=== PATIENT | female | born 1935 | race Two or more races ===

== ENCOUNTER 2016-11-28 20:59 | Inpatient (IN) | payer MEDICARE, MEDICAID ==
[2016-11-28 21:46] LABS: % BASOPHILS 0.4 % (0.0-2.0); % EOSINOPHILS 3.1 % (0.0-5.0); % LYMPHOCYTES 32.7 % (20.0-50.0); % MONOCYTES 11.1 % (2.0-10.0); % NEUTROPHILS 52.7 % (40.0-80.0); MEAN CELL VOLUME 85.7 fl (81-100); MEAN CORPUSCULAR HEMOGLOBIN 29.2 pg (27.0-31.0); MEAN CORPUSCULAR HGB CONC 34.1 pg (28.0-36.0); MEAN PLATELET VOLUME 9.1 fl; NEUTROPHILE ABSOLUTE 3.4 Th/cmm (1.8-8.0); PLATELET COUNT 215 Th/cmm (150-400); RED CELL DISTRIBUTION WIDTH 13.3 % (11.5-20.0); WHITE BLOOD COUNT 6.4 Th/cmm (4.8-10.8)
[2016-11-28 21:53] LABS: HEMATOCRIT 31.7 % (35.0-45.0); HEMOGLOBIN 10.8 gm/dL (11.7-16.1)
--- NOTE | 2016-11-28 21:54 | ED Physician Chart ---
Chief Complaint/HPI - Patient Information Date Seen:: 11/28/16 Time Seen:: 21:10 Chief Complaint:: SUICIDAL History of Present Illness:: THIS IS A 81 YO FEMALE WHO WAS SENT HERE FROM [facility] FOR EVALUATION AND TREATMENT OF HER PSYCHOSIS. SHE HAS BEEN VERBALIZING ABOUT KILLING HERSELF. SHE ALSO HAS MULTIPLE MEDICAL ISSUES. HYPERTENSION, PARKINSON'S, DEPRESSION, DEMENTIA, DIABETES MELLITUS,GERD AND ELEVATED LIPIDS. SHE IS DISORIENTED. Allergies:: Allergies Allergy/AdvReac Type Severity Reaction Status Date / Time No Known Allergies Allergy Verified 11/28/16 21:13 Vitals:: Vital Signs - 8 hr 11/28/16 21:00 Temp 98.1 F HR 60 RR 18 BP 98/53 O2 Sat % 95 Historian:: EMS, Medical Records Review:: Nurse's Note Reviewed, Transfer documents Reviewed Review of Systems - Review of Systems General/Constitutional: No fever, No chills, No weight loss, No weakness, No diaphoresis, No edema, No loss of appetite Skin: No skin lesions, No rash, No bruising Head: No headache, No light-headedness Eyes: No loss of vision, No pain, No diplopia ENT: No earache, No nasal drainage, No sore throat, No tinnitus Neck: No neck pain, No swelling, No thyromegaly, No stiffness, No mass noted Cardio Vascular: No chest pain, No palpitations, No PND, No orthopnea, No edema Pulmonary: No SOB, No cough, No sputum, No wheezing GI: No nausea, No vomiting, No diarrhea, No pain, No melena, No hematochezia, No constipation, No hematemesis G/U: No dysuria, No frequency, No hematuria Musculoskeletal: No bone or joint pain, No back pain, No muscle pain Endocrine: No polyuria, No polydipsia Psychiatric: No prior psych history, No depression, No anxiety, No suicidal ideation Hematopoietic: No bruising, No lymphadenopathy Allergic/Immuno: No urticaria, No angioedema Neurological: No syncope, No focal symptoms, No weakness, No paresthesia, No headache, No seizure, No dizziness, Confusion (THIS PATIENT IS CONFUSED AND CANNOT GIVE A REVIEW OF SYSTEMS), No confusion, No vertigo Past Medical History - Past Medical History Obtainable: Yes Past Medical History: HTN, DM, CAD, CHF, CVA/TIA, Dyslipidemia, Dementia Family History: None Social History: Non Smoker, No Alcohol, No Drug Use Surgical History: None Psychiatricy History: Depression, Schizophrenia, Dementia Medication: Reviewed Family Medical History - Family Member Mother History Unknown: Yes Ethnicity: Living Status: Physical Exam - Physical Examination General/Constitutional: Awake, Well-developed, well-nourished, Alert (ALERT BUT IS DISORIENTED TO PERSON, PLACE AND CIRCUMSTANCES), No distress, GCS 15, Non- toxic appearing, Ambulatory Head: Atraumatic Eyes: Lids, conjuctiva normal, PERRL, EOMI Skin: Nl inspection, No rash, No skin lesions, No ecchymosis, Well hydrated, No lymphadenopathy ENMT: External ears, nose nl, Nasal exam nl, Lips, teeth, gums nl Neck: Nontender, Full ROM w/o pain, No JVD, No nuchal rigidity, No bruit, No mass, No stridor Respiratory: Nl effort/Exclusion, Clear to Auscultation, No Wheeze/Rhonchi/Rales Cardio Vascular: RRR, No murmur, gallop, rubs, NL S1 S2 Other Cardio Vascular comments:: PACEMAKER NOTED IN CHEST WALL GI: No tenderness/rebounding/guarding, No organomegaly, No hernia, Normal BS's, Nondistended, No mass/bruits, No McBurney tenderness : No CVA tenderness Extremities: No tenderness or effusion, Full ROM, normal strength in all extremities, No edema, Normal digits & nails Neuro/Psych: Alert/oriented, DTR's symmetric, Normal sensory exam, Normal motor strength, Judgement/insight normal, Mood normal, Normal gait, No focal deficits Misc: normal gait, Normal back, No paraspinal tenderness Labs/Radiology/EKG Results - Lab Results Results: Abnormal Lab Results 11/28/16 21:10 WBC 6.4 RBC 3.70 L Hgb 10.8 L D Hct 31.7 L D MCV 85.7 MCH 29.2 MCHC Differential 34.1 RDW 13.3 Plt Count 215 MPV 9.1 Neutrophils % 52.7 Lymphocytes % 32.7 Monocytes % 11.1 H Eosinophils % 3.1 Basophils % 0.4 - EKG Interpretations EKG Time:: 21:53 Rhythm: NORMAL SINUS Ryde: LEFT Rate: 60 ED Septic Shock - . Is Septic Shock (SBP<90, OR Lactate>4 mmol\L) present?: No - <6hrs of presentation: Vital Signs: Vital Signs - 8 hr 11/28/16 21:00 Temp 98.1 F HR 60 RR 18 BP 98/53 O2 Sat % 95 Reassessment (Disposition) - Reassessment Reassessment Condition:: Unchanged - Diagnosis Diagnosis:: SUICIDAL PSYCHOSIS DEMENTIA - Aftercare/Follow up Instructions Aftercare/Follow-Up Instructions:: Refer to Discharge Instructions - Patient Disposition Discharge/Transfer:: Acute Care w/in this hosp Spoke to:: Bienvenido Huffman Admitting Psych Physician:: Sharmaine Waldron Condition at Disposition:: Unchanged
[2016-11-28 22:01] LABS: ALB/GLOB RATIO 1.2 (1.0-1.8); ALKALINE PHOSPHATASE 48 U/L (34-104); ANION GAP 9.7 (7.0-16.0); BILIRUBIN,TOTAL 0.3 mg/dL (0.3-1.0); BUN - UREA NITROGEN 36 mg/dL (7-25); BUN/CREATININE RATIO 25.7; CALCIUM SERUM 9.7 mg/dL (8.6-10.3); CARBON DIOXIDE 25.6 mEq/L (21.0-31.0); CHLORIDE 104 mEq/L (98-107); CHOLESTEROL 126 mg/dL (<200); CREATININE - SERUM 1.4 mg/dL (0.6-1.2); GLUCOSE 136 mg/dL (70-105); POTASSIUM SERUM 4.3 mEq/L (3.5-5.1); SGOT 14 U/L (13-39); SGPT/ALT < 3 U/L (7-52); SODIUM SERUM 135 mEq/L (136-145); TRIGLYCERIDES 130 mg/dL (<150)
[2016-11-28 22:05] LABS: URINE BILIRUBIN NEGATIVE (NEGATIVE); URINE BLOOD NEGATIVE (NEGATIVE); URINE COLOR YELLOW; URINE GLUCOSE (UA) NEGATIVE (NEGATIVE); URINE KETONE NEGATIVE (NEGATIVE)
[2016-11-28 22:06] LABS: URINE PROTEIN NEGATIVE (NEGATIVE); URINE UROBILINOGEN 0.2 E.U./dL (0.2 - 1.0)
[2016-11-28 22:07] LABS: URINE BACTERIA NONE SEEN /hpf (NONE SEEN); URINE EPITHELIAL CELLS NONE SEEN /lpf (FEW); URINE RBC NONE SEEN /hpf (0-5); URINE WBC 0-2 /hpf (0-5)
[2016-11-28 22:10] LABS: INR 1.05 (0.5-1.4); PROTHROMBIN TIME (TEST) 10.4 SECONDS (9.5-11.5)
[2016-11-28] MEDS ORDERED: Maalox 30 mL Cup PO PRN (22:57)
[2016-11-28] MEDS ORDERED: Magnesium Hydroxide (MOM) 30 mL UDC PO PRN (22:57)
[2016-11-28] MEDS ORDERED: Fleet Enema 135 mL RC PRN (23:30)
[2016-11-29 00:01] VITALS: BP 118/79
[2016-11-29] MEDS: Aspirin 81mg Chewable Tab PO SCH (09:48)
[2016-11-29] MEDS: Multivitamin Tab PO SCH (09:48)
--- NOTE | 2016-11-29 15:23 | Diagnostic Imaging Report ---
Portable chest x-ray HISTORY: Shortness of breath The heart is enlarged. Cardiac pacemaker lead wires project over the right atrium and right ventricle. Atherosclerotic calcification is seen in the aorta. Allowing for a poor inspiration, no acute focal pulmonary processes are seen. IMPRESSION: 1. Allowing for a poor inspiration, no acute focal pulmonary processes 2. Cardiomegaly with atherosclerotic vascular changes
[2016-11-29] MEDS: NITROGLYCERIN OINT 2% 1 INCH PACKET TP SCH (18:47)
--- NOTE | 2016-11-29 21:28 | History & Physical ---
INTERNAL MEDICINE CONSULTATION HISTORY OF PRESENT ILLNESS: The patient is an 81-year-old female with past medical history significant for COPD, congestive heart failure, diabetes mellitus, hypertension, coronary artery disease, ____, gastritis, arthritis, history of cardiac arrhythmia, and anemia. SOCIAL HISTORY: Prior history of smoking. No history of drug or alcohol abuse. FAMILY HISTORY: Not available. OBSTETRIC HISTORY: P 2+0. Menses ____ menopausal. REVIEW OF SYSTEMS: The patient is complaining of headache. The patient is suicidal, has been transferred chronic back pain, occasional nausea, no vomiting, no melena or hematochezia. PHYSICAL EXAMINATION: GENERAL: Elderly female in no obvious respiratory distress. VITAL SIGNS: Include blood pressure of 140/80, heart 80, and respiratory rate of 18. SKIN: Shows no cellulitis. HEENT: Normal conjunctiva. NECK: Supple. LUNGS: Occasional rhonchi, occasional crepitation. No bronchial breathing. HEART: present. ABDOMEN: Soft, bowel sounds . EXTREMITIES: Show arthritis. NEUROLOGIC: The patient is confused. LABS: Have been reviewed. CURRENT DIAGNOSES: 1. Chronic obstructive pulmonary disease. 2. Congestive heart failure. 3. Diabetes mellitus. 4. Hypertension. 5. Coronary artery disease. 6. ____. 7. Gastritis. 8. Arthritis. 9. Cardiac arrhythmia. 10. Psychosis. TREATMENT PLAN: As per JAN. PROGNOSIS: Fair to guarded. JOB# [id number]
--- NOTE | 2016-11-29 23:33 | Psychosocial Evaluation ---
IDENTIFYING DATA: The patient is an 81-year-old woman admitted here on a voluntary basis in view of her acute depression. CHIEF COMPLAINT: "I want to end my life. I cannot go on like this." HISTORY OF PRESENT ILLNESS: This is the first psychiatric hospitalization to the [facility] for this patient who is reported to have been diagnosed with the depression for a long period of time and has been followed up by Dr. Huffman and Dr. Pruitt in [facility] and patient lately has been feeling extremely depressed and has been voicing suicidal ideations and plans. The patient has been maintained with the Cymbalta and Zyprexa even then the patient has not been able to contract for safety and hence patient has been referred over here for further stabilization. PAST PSYCHIATRIC HISTORY: Please refer to the above. MEDICAL HISTORY: Physical examination is requested and done by Dr. Huffman and is significant for hypertension, Parkinson's disease and diabetes mellitus. SUBSTANCE ABUSE HISTORY: None. PHYSICAL OR SEXUAL ABUSE HISTORY: None. LEGAL PROBLEMS: None at this time. STRENGTH AND ASSETS: The patient is motivated. MENTAL STATUS EXAMINATION: The patient is an 81-year-old woman, moderately obese, superficially cooperative. Eye contact is fair. Mood ____ depressed. Affect is constricted. Insight and judgment at this time are noted to be impaired. Impulse control seems to be poor. Coping skills are also noted to be poor. The patient has been having difficult time to cope with the stress. The patient is tearful and crying and stating that she cannot deal with her life and wants to end it. The patient has paranoid delusions, but denies any command hallucinations. The patient's short and long-term memory are noted to very poor. The patient is isolative and withdrawn. The patient is not able to recall the three objects that are mentioned to her after 5 minutes, but patient knows her age, but is having difficult time to recall her date of . DIAGNOSTIC IMPRESSION: AXIS I: Major depressive disorder, recurrent with psychotic symptoms. AXIS II: None. AXIS III: As per Dr. Huffman. IMMEDIATE TREATMENT PLAN: The patient is going to be observed on inpatient unit, provided with supportive psychotherapy. The patient is going to be continued on the Cymbalta, which is going to be gradually increased and the Zyprexa is going to be adjusted. ESTIMATED LENGTH OF STAY: 3-5 days. DISCHARGE CRITERIA: When patient is no longer a threat to self or others and be able to cope up with the stress. [facility]# [id number]
[2016-11-30] MEDS: Aspirin 81mg Chewable Tab PO SCH (10:01)
[2016-11-30] MEDS: NITROGLYCERIN OINT 2% 1 INCH PACKET TP SCH (10:02)
[2016-11-30] MEDS: Multivitamin Tab PO SCH (10:02)
[2016-11-30] MEDS: Artificial Tear Ophth Oint 3.5 Gm Tube EACH EYE SCH (17:36)
--- NOTE | 2016-12-01 06:43 | Progress Notes ---
TIME PATIENT SEEN: 5:30 p.m. SUBJECTIVE: Staff was spoken to. The patient is interviewed. Mood is noted to be depressed. Affect is constricted. The patient is still responding to internal stimuli. Insight and judgment are noted to be very much impaired. The patient has been having drooling, ____now on one hand, the patient also has been stating that the voices to keep on telling her to hurt herself. No side effects to the medications are noted at this time. ASSESSMENT: The patient is still psychotic. PLAN: To continue the patient with the supportive therapy. I encouraged the patient to verbalize the concerns rather than to act out. JOB# [id number]
[2016-12-01] MEDS: Aspirin 81mg Chewable Tab PO SCH (08:44)
[2016-12-01] MEDS: Artificial Tear Ophth Oint 3.5 Gm Tube EACH EYE SCH ×2 (08:47→16:44)
[2016-12-01] MEDS: Multivitamin Tab PO SCH (08:47)
[2016-12-01] MEDS: NITROGLYCERIN OINT 2% 1 INCH PACKET TP SCH (08:48)
[2016-12-01] MEDS ORDERED: Magnesium Hydroxide (MOM) 30 mL UDC PO PRN (09:52)
--- NOTE | 2016-12-02 04:42 | Progress Notes ---
TIME PATIENT SEEN: 08:45 a.m. SUBJECTIVE: Staff was spoken to. The patient is interviewed. Mood is noted to be irritable. Affect is constricted. Coping skills are noted to be still poor. Sleep and appetite are also noted to be poor. The patient has been having difficult time to cope with the stress. No side effects to the medications are noted at this time. The patient is still having difficult time to cope with the stress, has paranoid delusions and is insisting on hurting herself. ASSESSMENT: The patient is still psychotic. PLAN: To continue the patient with Zyprexa. I encouraged the patient to verbalize the concerns rather than to act out. JOB# [id number]
[2016-12-02] MEDS: NITROGLYCERIN OINT 2% 1 INCH PACKET TP SCH (09:48)
[2016-12-02] MEDS: Artificial Tear Ophth Oint 3.5 Gm Tube EACH EYE SCH ×2 (09:48→17:51)
[2016-12-02] MEDS: Aspirin 81mg Chewable Tab PO SCH (09:50)
[2016-12-02] MEDS: Multivitamin Tab PO SCH (09:50)
--- NOTE | 2016-12-02 23:06 | Progress Notes ---
PSYCHIATRIC PROGRESS NOTE TIME PATIENT SEEN: 7:45 a.m. SUBJECTIVE: Staff was spoken to. The patient is interviewed. Mood is noted to be anxious. The patient's coping skills are noted to be poor. Sleep and appetite are also noted to be poor. The patient has been having difficult time to cope with the stress. The patient is still responding to internal stimuli and is stating that she is scared that they are going to be trying to hurt her. The patient has no insight into her illness. ASSESSMENT: The patient is still psychotic and depressed. PLAN: To continue the patient with the current medications. I encouraged the patient to verbalize the concerns rather than to act out. JOB# [id number]
[2016-12-03] MEDS: Multivitamin Tab PO SCH (09:18)
[2016-12-03] MEDS: Aspirin 81mg Chewable Tab PO SCH (09:19)
[2016-12-03] MEDS: Artificial Tear Ophth Oint 3.5 Gm Tube EACH EYE SCH ×2 (09:32→17:29)
[2016-12-03] MEDS: NITROGLYCERIN OINT 2% 1 INCH PACKET TP SCH (09:32)
--- NOTE | 2016-12-04 01:16 | Progress Notes ---
PSYCHIATRIC PROGRESS NOTE TIME PATIENT SEEN: 8:30 a.m. SUBJECTIVE: Staff was spoken to. The patient is interviewed. Continues to be irritable and angry. Affect is constricted. The patient is isolative and withdrawn. Coping skills are noted to be poor. The patient is stating that she is sleeping okay. Appetite is , but voices are still a problem. No side effects to the medications are noted. ASSESSMENT: The patient is still psychotic and is responding to internal stimuli. PLAN: To continue the patient with supportive therapy and follow up. JOB# [id number]
[2016-12-04] MEDS: Aspirin 81mg Chewable Tab PO SCH (08:27)
[2016-12-04] MEDS: Artificial Tear Ophth Oint 3.5 Gm Tube EACH EYE SCH ×2 (08:28→17:13)
[2016-12-04] MEDS: Multivitamin Tab PO SCH (08:29)
[2016-12-04] MEDS: NITROGLYCERIN OINT 2% 1 INCH PACKET TP SCH (08:30)
--- NOTE | 2016-12-05 01:33 | Progress Notes ---
PSYCHIATRIC PROGRESS NOTE TIME PATIENT SEEN: 09:00 a.m. SUBJECTIVE: Staff was spoken to. The patient is interviewed. Mood is noted to be anxious. The patient is still responding to internal stimuli. The patient has been on this Zyprexa and it is decided to change the Zyprexa to Seroquel last night. Seroquel 25 mg has been given to help her to sleep and resolve the psychosis, but the patient still has been having tremor in the upper extremities. Plan is to closely monitor the patient and discontinue the Zyprexa and see if the Seroquel can be of some help. JOB# [id number]
[2016-12-05] MEDS: Artificial Tear Ophth Oint 3.5 Gm Tube EACH EYE SCH ×2 (08:50→16:40)
[2016-12-05] MEDS: Aspirin 81mg Chewable Tab PO SCH (08:52)
[2016-12-05] MEDS: Multivitamin Tab PO SCH (08:53)
[2016-12-05] MEDS: NITROGLYCERIN OINT 2% 1 INCH PACKET TP SCH (08:53)
--- NOTE | 2016-12-06 00:04 | Progress Notes ---
PSYCHIATRIC PROGRESS NOTE TIME PATIENT SEEN: 8:45 a.m. SUBJECTIVE: Staff was spoken to. The patient is interviewed. Mood is noted to be irritable. Affect is constricted. The patient has been still responding to internal stimuli. The patient is currently on Seroquel and is able to tolerate the medication. The patient continues to have tremor in the upper extremities. No side effects to the medications are noted at this time. ASSESSMENT: The patient is still psychotic. PLAN: To continue the patient with the current medications and follow. JOB# [id number]
[2016-12-06] MEDS: Multivitamin Tab PO SCH (09:05)
[2016-12-06] MEDS: Aspirin 81mg Chewable Tab PO SCH (09:05)
[2016-12-06] MEDS: NITROGLYCERIN OINT 2% 1 INCH PACKET TP SCH (09:11)
[2016-12-06] MEDS: Artificial Tear Ophth Oint 3.5 Gm Tube EACH EYE SCH ×2 (09:20→16:35)
--- NOTE | 2016-12-06 23:55 | Progress Notes ---
PSYCHIATRIC PROGRESS NOTE TIME PATIENT SEEN: 6:30 a.m. SUBJECTIVE: Staff was spoken to. The patient is interviewed. Mood is noted to be anxious. Affect is constricted. The patient's insight and judgment are noted to be still impaired. Impulse control is noted to be poor. Coping skills are noted to be very poor. No side effects to the medications are noted. The patient has been having difficult time to cope with the stress. ASSESSMENT: The patient is still psychotic and depressed. PLAN: To continue the patient with supportive therapy. I encouraged the patient to verbalize the concerns rather than to act out. JOB# [id number]
[2016-12-07] MEDS: Multivitamin Tab PO SCH (09:52)
[2016-12-07] MEDS: Aspirin 81mg Chewable Tab PO SCH (09:52)
[2016-12-07] MEDS: Artificial Tear Ophth Oint 3.5 Gm Tube EACH EYE SCH ×2 (09:53→16:28)
[2016-12-07] MEDS: NITROGLYCERIN OINT 2% 1 INCH PACKET TP SCH (09:54)
--- NOTE | 2016-12-08 03:08 | Progress Notes ---
PSYCHIATRIC PROGRESS NOTE TIME PATIENT SEEN: 5:15 p.m. SUBJECTIVE: Staff was spoken to. The patient is interviewed. Mood is noted to be irritable. Affect is constricted. Coping skills are noted to be poor. The patient has paranoid delusions, but denies any command hallucinations. No side effects to the medications are noted. The patient has been having difficult time with the stress. The patient has tremor in the upper extremities because of the Parkinson's disease. ASSESSMENT: The patient is still psychotic. PLAN: To continue the patient with the supportive therapy. I encouraged the patient to verbalize the concerns rather than to act out. JOB# [id number]
[2016-12-08] MEDS: Multivitamin Tab PO SCH (09:57)
[2016-12-08] MEDS: Aspirin 81mg Chewable Tab PO SCH (09:57)
[2016-12-08] MEDS: Artificial Tear Ophth Oint 3.5 Gm Tube EACH EYE SCH ×2 (09:57→17:34)
[2016-12-08] MEDS: NITROGLYCERIN OINT 2% 1 INCH PACKET TP SCH (09:58)
--- NOTE | 2016-12-08 20:59 | Progress Notes ---
PSYCHIATRIC PROGRESS NOTE TIME PATIENT SEEN: 9:45 a.m. SUBJECTIVE: Staff was spoken to. The patient is interviewed. Mood is noted to be depressed. Affect is constricted. The patient is still responding to internal stimuli. The patient has been having drooling all over. The patient's coping skills are noted to be poor. No side effects to medications are noted at this time. ASSESSMENT: The patient is still psychotic. PLAN: To continue the patient with Seroquel. I encouraged the patient to verbalize the concerns. The case sealer is going to be spoken to with regards to the patient's condition and primary care physician is going to be contacted with regards to reevaluation of her Parkinson's medications. JOB# [id number]
[2016-12-09] MEDS: Aspirin 81mg Chewable Tab PO SCH (08:51)
[2016-12-09] MEDS: Multivitamin Tab PO SCH (08:52)
[2016-12-09] MEDS: Artificial Tear Ophth Oint 3.5 Gm Tube EACH EYE SCH ×2 (12:12→17:55)
[2016-12-09] MEDS: NITROGLYCERIN OINT 2% 1 INCH PACKET TP SCH (12:13)
[2016-12-10] MEDS: Multivitamin Tab PO SCH (08:17)
[2016-12-10] MEDS: Aspirin 81mg Chewable Tab PO SCH (08:21)
[2016-12-10] MEDS: NITROGLYCERIN OINT 2% 1 INCH PACKET TP SCH (08:25)
[2016-12-10] MEDS: Artificial Tear Ophth Oint 3.5 Gm Tube EACH EYE SCH ×2 (08:30→16:32)
--- NOTE | 2016-12-10 12:03 | Progress Notes ---
PSYCHIATRIC PROGRESS NOTE TIME PATIENT SEEN: 7:15 a.m. SUBJECTIVE: Staff was spoken to. The patient is interviewed. Mood is noted to be depressed. Affect is constricted. The patient has been having drooling and the patient got agitated and anxious yesterday and has to be given a dose of Ativan that made her to be too drowsy. The patient's primary care physician, Dr. Huffman has been requested for the patient to be reevaluated with regards to her Parkinson's medications. ASSESSMENT: The patient continues to be paranoid and visual hallucinations are there. PLAN: To continue the patient with Seroquel and follow up. JOB# [id number]
[2016-12-11] MEDS: NITROGLYCERIN OINT 2% 1 INCH PACKET TP SCH (08:53)
[2016-12-11] MEDS: Artificial Tear Ophth Oint 3.5 Gm Tube EACH EYE SCH ×2 (08:53→16:34)
[2016-12-11] MEDS: Multivitamin Tab PO SCH (08:54)
[2016-12-11] MEDS: Aspirin 81mg Chewable Tab PO SCH (08:54)
--- NOTE | 2016-12-11 20:09 | Progress Notes ---
PSYCHIATRIC PROGRESS NOTE TIME PATIENT SEEN: ____ SUBJECTIVE: Staff was spoken to. The patient is interviewed. Mood is noted to be anxious. Affect is constricted. The patient's insight and judgment are noted to be improving. Impulse control seems to be fair. Coping skills are also noted to be fair. The patient has paranoid delusions, but denies any command hallucinations. The patient has been having problems with the depression and the patient has tremor in the upper extremities, which is going down. No side effects to the medications are noted at this time. ASSESSMENT: The patient's psychosis is resolving, but the patient is still depressed. PLAN: To continue the patient's current medications and follow up. [facility]# [id number]
[2016-12-12] MEDS: NITROGLYCERIN OINT 2% 1 INCH PACKET TP SCH (08:56)
[2016-12-12] MEDS: Artificial Tear Ophth Oint 3.5 Gm Tube EACH EYE SCH ×2 (08:56→18:32)
[2016-12-12] MEDS: Multivitamin Tab PO SCH (08:56)
[2016-12-12] MEDS: Aspirin 81mg Chewable Tab PO SCH (08:56)
--- NOTE | 2016-12-12 20:00 | Progress Notes ---
TIME PATIENT SEEN: 09:30 a.m. SUBJECTIVE: Staff was spoken to. The patient is interviewed. Mood is noted to be depressed. Affect is constricted. The patient has been still isolative and withdrawn. The drooling has been coming down, but the patient continues to be paranoid. The patient is stating that she is still hearing the voices, but she is also stating that she is getting too drowsy with the medication. The patient has been changed from Zyprexa to Seroquel and has been able to tolerate the medication. The patient has been denying immediate hallucinations at this time, but the patient continues to be paranoid. ASSESSMENT: The patient is still having paranoia. PLAN: To continue the patient with supportive therapy. I encouraged the patient to verbalize the concerns rather than to act out. JOB# [id number]
[2016-12-13] MEDS: Aspirin 81mg Chewable Tab PO SCH (09:17)
[2016-12-13] MEDS: NITROGLYCERIN OINT 2% 1 INCH PACKET TP SCH (09:17)
[2016-12-13] MEDS: Multivitamin Tab PO SCH (09:17)
[2016-12-13] MEDS: Artificial Tear Ophth Oint 3.5 Gm Tube EACH EYE SCH ×2 (09:17→18:01)
--- NOTE | 2016-12-13 23:02 | Progress Notes ---
PSYCHIATRIC PROGRESS NOTE TIME PATIENT SEEN: 07:15 a.m. SUBJECTIVE: Staff was spoken to. The patient is interviewed. Mood is noted to be anxious. Affect is appropriate. Not suicidal or homicidal. Insight and judgment are noted to be improving. Impulse control seems to be fair. No side effects to the medications are noted. The patient has not been able to participate in the groups. The patient has been having difficult time to cope with the stress. The patient is stating that the voices are going down, but she is still worried about getting back to the facility. No side effects to the medications are noted at this time. ASSESSMENT: The patient is still paranoid, but not impulsive. PLAN: To continue the patient with supportive therapy and followup. JOB# [id number]
--- NOTE | 2016-12-17 21:00 | Discharge Summary ---
IDENTIFYING DATA: The patient is an 81-year-old woman, resident of [facility]. Information was obtained by directly interviewing the patient as well as reviewing the admission papers. JUSTIFICATION OF HOSPITALIZATION: The patient is admitted here on a voluntary basis in view of her psychosis and depression. CHIEF COMPLAINT: "I want to end my life. I cannot go on like this." DIAGNOSIS AT THE TIME OF ADMISSION: Major depressive disorder, recurrent with psychotic symptoms. SECONDARY DIAGNOSIS: None. MEDICAL DIAGNOSES: As per Dr. Huffman. HISTORY OF PRESENT ILLNESS: Please refer to the 11/29/2016 dictation done by me. Physical examination was done by Dr. Huffman and is noted to be significant for COPD, hypertension, diabetes mellitus and Parkinson's disease. HOSPITAL COURSE AND RESPONSE TO TREATMENT: The patient has been observed on Inpatient Unit, provided with supportive psychotherapy. The patient has been closely monitored. The patient was noted to be too drowsy and drugged up and hence, the Zyprexa has been gradually discontinued. The patient has been placed on low dose of the Seroquel at bedtime. The patient has been encouraged to participate in the groups and verbalize the concerns rather than to act out. The patient's carbidopa, levodopa has been changed to 25/100 one twice a day and the patient has been encouraged to participate in the groups. The patient's psychosis started to resolve and the patient has been noted to be doing fairly well and hence, the patient was finally discharged to be followed up on an outpatient basis. The patient's Zyprexa and Cymbalta have been discontinued while she was here. MENTAL STATUS EXAMINATION AT THE TIME OF DISCHARGE: The patient's mood is noted to be anxious. Affect is appropriate, not suicidal or homicidal. Insight and judgment are noted to be improving. Impulse control is noted to be fair. No side effects to the medications are noted. The patient is motivated to seek treatment on an outpatient basis. DIAGNOSIS AT THE TIME OF DISCHARGE: AXIS I: Major depressive disorder, recurrent with psychotic symptoms. SECONDARY DIAGNOSIS: None. MEDICAL DIAGNOSES: Chronic obstructive pulmonary disease, diabetes mellitus, hypertension, coronary artery disease and Parkinson's disease. AFTERCARE PLAN: The patient is discharged to [facility] to be followed up by Dr. Pruitt on an outpatient basis. PROGNOSIS AT THE TIME OF THE DISCHARGE: Noted to be guarded. JOB# [id number]
== END 2016-12-13 18:10 | DRG 885 ==
LOC: ER 20:59 → GERO 22:05
PROVIDERS: ADMIT Psychiatry & Neurology Psychiatry; ATTEND Psychiatry & Neurology Psychiatry
DX: F33.3 Major depressive disorder, recurrent, severe with psychotic symptoms (principal); F03.90 Unspecified dementia, unspecified severity, without behavioral disturbance, psychotic disturbance, mood disturbance, and anxiety; G20 Parkinson's disease; I11.0 Hypertensive heart disease with heart failure; E11.9 Type 2 diabetes mellitus without complications; J44.9 Chronic obstructive pulmonary disease, unspecified; I50.9 Heart failure, unspecified; D64.9 Anemia, unspecified; F29 Unspecified psychosis not due to a substance or known physiological condition; K21.9 Gastro-esophageal reflux disease without esophagitis; I25.10 Atherosclerotic heart disease of native coronary artery without angina pectoris; E78.5 Hyperlipidemia, unspecified; M19.90 Unspecified osteoarthritis, unspecified site; K29.70 Gastritis, unspecified, without bleeding; Z86.73 Personal history of transient ischemic attack (TIA), and cerebral infarction without residual deficits; Z87.891 Personal history of nicotine dependence
CPT/HCPCS: 36415-UA; 71010-TC; 80053-TC; 80061-TC; 81001-TC; 82948-90; 84443-TC; 84484-TC; 85025-TC; 85610-TC; 86592-TC; 93005; J2060; J7051; X3401; Z7610

== ENCOUNTER 2017-12-21 18:42 | Inpatient (IN) | payer MEDICARE, MEDICAID ==
--- NOTE | 2017-12-21 19:05 | ED Physician Chart ---
ED Chief Complaint/HPI - Patient Information Date Seen:: 12/21/17 Time Seen:: 19:00 Chief Complaint:: poor fluid intake and refusing meds History of Present Illness:: Poor oral intake and refusing meds for last 2 days. Also has been exhibiting aggressive behavior. Allergies:: Allergies Allergy/AdvReac Type Severity Reaction Status Date / Time No Known Allergies Allergy Verified 11/28/16 21:13 Historian:: EMS Review:: Transfer documents Reviewed ED Review of Systems - Review of Systems General/Constitutional: No fever, No chills Skin: No skin lesions Head: No headache Eyes: No loss of vision ENT: No earache Neck: No neck pain Cardio Vascular: No chest pain Pulmonary: No SOB GI: No nausea, No vomiting, No diarrhea G/U: No dysuria Musculoskeletal: No bone or joint pain Endocrine: No polyuria Psychiatric: Prior psych history Hematopoietic: No bruising Allergic/Immuno: No urticaria Neurological: No syncope ED Past Medical History - Past Medical History Past Medical History: DM, CAD, Other (stage IV renal disease; dementia Parkinson 's disease; depression) Family History: Other (not available) Social History: Care Facility Surgical History: other (pacemaker) Psychiatricy History: Dementia Medication: Reviewed Family Medical History - Family Member Mother History Unknown: Yes Ethnicity: Unknown Living Status: Unknown Hx Family Cancer: (unknown) Hx Family Coronary Artery Disease: (unknown) Hx Family Congestive Heart Failure: (unknown) Hx Family Hypertension: (unknown) Hx Family Stroke: (unknown) Hx Family Diabetes: (unknown) Hx Family Seizures: (unknown) Hx Family Dementia: (unknown) Hx Family AIDS: (unknown) Hx Family COPD: (unknown) Hx Family Hepatitis: (unknown) Hx Family Psychiatric Problems: (unknown) Hx Family Tuberculosis: (unknown) ED Physical Exam - Physical Examination General/Constitutional: Well-developed, well-nourished, Alert, No distress Head: Atraumatic Eyes: Lids, conjuctiva normal, PERRL Skin: Nl inspection, No rash, No skin lesions, No ecchymosis ENMT: External ears, nose nl Neck: No nuchal rigidity Respiratory: Nl effort/Exclusion, Clear to Auscultation Cardio Vascular: RRR, No murmur, gallop, rubs GI: No tenderness/rebounding/guarding Extremities: Normal digits & nails Neuro/Psych: No focal deficits Misc: Normal back ED Labs/Radiology/EKG Results - Lab Results Results: Laboratory Results - last 24 hr 12/21/17 12/21/17 12/21/17 19:15 19:15 19:15 WBC 9.1 D RBC 4.19 Hgb 11.9 L Hct 36.2 L D MCV 86.4 MCH 28.4 MCHC Differential 32.9 RDW 12.5 Plt Count 321 D MPV 9.2 Neutrophils % 75.8 Lymphocytes % 12.9 L Monocytes % 8.9 Eosinophils % 2.2 Basophils % 0.2 Sodium 140 Potassium 3.4 L Chloride 108 H Carbon Dioxide 26.1 Anion Gap 9.3 BUN 17 Creatinine 1.9 H Est GFR ( Amer) TNP Est GFR (Non-Af Amer) TNP BUN/Creatinine Ratio 8.9 Glucose 100 Calcium 9.1 Total Bilirubin 0.6 AST 12 L ALT 7 Alkaline Phosphatase 47 Total Protein 6.6 Albumin 3.5 L Globulin 3.1 Albumin/Globulin Ratio 1.1 Triglycerides 71 Cholesterol 119 LDL Cholesterol Direct 68 L HDL Cholesterol 40 TSH 1.65 - EKG Interpretations Rate & Rhythm: normal sinus rhythm with a rate of 77 [place]: normal Comments:: T wave changes in baseline artifact ED Septic Shock - . Is Septic Shock (SBP<90, OR Lactate>4 mmol\L) present?: No ED Reassessment (Disposition) - Reassessment Reassessment Condition:: Unchanged - Diagnosis Diagnosis:: Aggressive behavior - Patient Disposition Admitted to:: [facility] Admitting Medical Physician:: Tony Mary Admitting Psych Physician:: Amparo Hernandez Condition at Disposition:: Stable, Unchanged
[2017-12-21 19:34] LABS: % BASOPHILS 0.2 % (0.0-2.0); % EOSINOPHILS 2.2 % (0.0-5.0); % LYMPHOCYTES 12.9 % (20.0-50.0); % MONOCYTES 8.9 % (2.0-10.0); % NEUTROPHILS 75.8 % (40.0-80.0); EOSINOPHILE ABSOLUTE 0.2 Th/cmm (0.1-0.4); HEMOGLOBIN 11.9 gm/dL (12-16); LYMPHOCYTE ABSOLUTE 1.2 Th/cmm (1.5-3.0); MEAN CELL VOLUME 86.4 fl (81-100); MEAN CORPUSCULAR HEMOGLOBIN 28.4 pg (27.0-31.0); MEAN CORPUSCULAR HGB CONC 32.9 pg (28.0-36.0); MEAN PLATELET VOLUME 9.2 fl; MONOCYTE ABSOLUTE 0.8 Th/cmm (0.3-1.0); NEUTROPHILE ABSOLUTE 6.9 Th/cmm (1.8-8.0); RED BLOOD COUNT 4.19 Mil/cmm (3.80-5.20); RED CELL DISTRIBUTION WIDTH 12.5 % (11.5-20.0)
[2017-12-21 19:36] LABS: HEMATOCRIT 36.2 % (41.0-60); PLATELET COUNT 321 Th/cmm (150-400); WHITE BLOOD COUNT 9.1 Th/cmm (4.8-10.8)
[2017-12-21 19:39] LABS: ALB/GLOB RATIO 1.1 (1.0-1.8); ALBUMIN 3.5 gm/dL (3.7-5.3); ALKALINE PHOSPHATASE 47 U/L (34-104); ANION GAP 9.3 (7.0-16.0); BILIRUBIN,TOTAL 0.6 mg/dL (0.3-1.0); BUN - UREA NITROGEN 17 mg/dL (7-25); CALCIUM SERUM 9.1 mg/dL (8.6-10.3); CARBON DIOXIDE 26.1 mEq/L (21.0-31.0); CHLORIDE 108 mEq/L (98-107); CHOLESTEROL 119 mg/dL (<200); CREATININE - SERUM 1.9 mg/dL (0.6-1.2); GLUCOSE 100 mg/dL (70-105); HDL -HIGH DENSITY LIPOPROTEIN 40 mg/dL (23-92); POTASSIUM SERUM 3.4 mEq/L (3.5-5.1); SGOT 12 U/L (13-39); SGPT/ALT 7 U/L (7-52); SODIUM SERUM 140 mEq/L (136-145); TOTAL PROTEIN,SERUM 6.6 gm/dL (6.0-8.3); TRIGLYCERIDES 71 mg/dL (<150)
[2017-12-22 00:17] VITALS: BP 125/67
[2017-12-22] MEDS ORDERED: Magnesium Hydroxide (MOM) 30 mL UDC PO PRN (00:27)
[2017-12-22] MEDS ORDERED: Fleet Enema 135 mL RC PRN (00:27)
[2017-12-22] MEDS: Aspirin 81mg Chewable Tab PO SCH (09:41)
[2017-12-22] MEDS: Potassium Chloride 10 mEq ER Tab PO SCH (09:41)
[2017-12-22] MEDS: Multivitamin Tab PO SCH (09:44)
[2017-12-22 17:19] LABS: A1C % 5.5 % (4.0-6.0)
--- NOTE | 2017-12-22 19:53 | History and Physical ---
History of Present Illness - HPI Chief Complaint: refusing oral intake and aggressiveness HPI: This is a 82 year old [facility] resident who has been refusing oral intake and aggressive behavior towards nursing staff. Vital Signs: Last Vital Signs Temp 97.8 F 12/22/17 16:00 Pulse 97 12/22/17 16:00 Resp 16 12/22/17 16:00 BP 124/64 12/22/17 16:00 Pulse Ox 97 12/22/17 16:00 Past Medical History Other History: DM, CAD, Other (stage IV renal disease; dementia Parkinson's disease; depression ) Family Medical History - Family Member Mother History Unknown: Yes Ethnicity: Unknown Living Status: Unknown Hx Family Cancer: (unknown) Hx Family Coronary Artery Disease: (unknown) Hx Family Congestive Heart Failure: (unknown) Hx Family Hypertension: (unknown) Hx Family Stroke: (unknown) Hx Family Diabetes: (unknown) Hx Family Seizures: (unknown) Hx Family Dementia: (unknown) Hx Family AIDS: (unknown) Hx Family HIV: No Hx Family COPD: (unknown) Hx Family Hepatitis: (unknown) Hx Family Psychiatric Problems: (unknown) Hx Family Tuberculosis: (unknown) Social History Smoke: No Alcohol: None Drugs: None Lives: Care Home - Medications Home Medications: Home Medication Medication Instructions Recorded Type Folic Acid [Folate*] 1 mg PO DAILY #0 tab 10/21/15 Rx Magnesium Hydroxide [Milk of 30 ml PO DAILY PRN #0 udc 10/21/15 Rx Magnesia] metFORMIN [Glucophage] 500 mg PO BID #0 tab 10/21/15 Rx Simvastatin [Zocor*] 20 mg PO QPM 11/28/16 History Aspirin [Aspirin Chewable] 81 mg PO DAILY #0 ctb 12/13/16 Rx Fleet Enema 135 ml RC Q48HR PRN #0 btl 12/13/16 Rx Mirtazapine [Remeron] 7.5 mg PO HS #0 tab 12/13/16 Rx Multivitamin [Theragran] 1 tab PO DAILY #0 tab 12/13/16 Rx Acetaminophen [Tylenol] 650 mg PO Q4HR PRN 12/21/17 History Bisacodyl [Dulcolax 10 Mg Supp] 10 mg RC DAILY PRN 12/21/17 History Carbidopa/Levodopa 25/100 mg 1 tab PO 2100 12/21/17 History [Sinemet 25mg-100 mg] Carbidopa/Levodopa 25/100 mg 1 tab PO QID 12/21/17 History [Sinemet 25mg-100 mg] Docusate Sodium [Colace] 100 mg PO DAILY 12/21/17 History Furosemide [Lasix] 20 mg PO DAILY 12/21/17 History Pantoprazole [Protonix] 40 mg PO DAILY 12/21/17 History Potassium Chloride 1 tab PO DAILY 12/21/17 History amLODIPine Besylate [Norvasc] 5 mg PO DAILY 12/21/17 History - Allergies Allergies/Adverse Reactions: Allergies Allergy/AdvReac Type Severity Reaction Status Date / Time No Known Allergies Allergy Verified 12/21/17 20:24 Review of Systems - Review of Systems Constitutional: Report: No Significant Eyes: Report: No Significant ENT: Report: No Significant Respiratory: Report: No Significant Cardiovascular: Report: No Significant Neurological: Report: No Significant Physical Exam - Physical Exam HEENT: Report: Ears Nose Throat within normal limits Neck: Report: Within normal limits Cardiovascular Systems: Report: +s1/s2 noted, Regular, Rate and Rhythm Respiratory: Report: Breath Sounds are within normal limits Extremities: Report: Non-tender to palpation. Skin: Report: Color of skin is within normal limits Neuro/Psych: Report: Mood affect is within normal limits - Assessment Assessment: DM STAGE IV RENAL DISEASE DEMENTIA DEPRESSION [facility] - Plan Plan: monitor glucose fall precautions monitor i+o continue current orders
--- NOTE | 2017-12-23 09:16 | Psychosocial Evaluation ---
DATE OF SERVICE: 12/21/2017 PSYCHIATRIC INITIAL EVALUATION AND MENTAL STATUS EXAM PATIENT'S AGE: 82. SEX: Female. PHYSICIAN: Amparo Hernandez MD, MPH CHIEF COMPLAINT: Agitation and aggressive behavior. HISTORY OF PRESENT ILLNESS: The patient is an 82-year-old female who is living in [facility]. The patient has been aggressive and agitated towards resident and staff. She was swinging at other residents. The patient also has been in angry and in irritable mood and she was not able to follow any of the staff directions. The patient also has been suspicious and has been paranoid and easily agitated. She also has not been able to calm down with the staff instructions. The patient was out of control and the patient was transferred to the hospital to monitor her condition and adjust her medications. PAST PSYCHIATRIC HISTORY: The patient has dementia. PAST MEDICAL HISTORY: The patient has history of Parkinson disease. SOCIAL HISTORY: The patient lives in [facility]. The patient has no known alcohol or drug use or smoking cigarettes. ALLERGIES: No known allergies. MENTAL STATUS EXAMINATION: The patient appears her stated age. Anxious. Irritable mood. Unable to carry on coherent conversation. The patient also has a history of septic shock. FAMILY HISTORY: Noncontributory. ALLERGIES: No known allergies. MENTAL STATUS EXAM: The patient appears her stated age. Anxious. Flat affect. Irritable mood. Thought processes are circumstantial and tangential with flight of ideas. The patient suspicious and paranoid. The patient denied hallucinations or delusions but she is paranoid. The patient denies suicidal or homicidal ideations. The patient is alert but seems to be confused and disoriented to time, place, person and situation. Impaired immediate and recent memory, but intact remote memory and she remembered her date. Poor insight. Poor judgment. ASSESSMENT: PRIMARY DIAGNOSIS: Unspecified psychosis. SECONDARY DIAGNOSIS: Dementia, moderate to severe. MEDICAL DIAGNOSIS: Parkinson disease. TREATMENT PLAN: Continue to monitor her behavior closely. We will add Seroquel in a dose of 12.5 mg 3 times a day. Also, continue to work on behavioral modification. Also, continue Remeron 7.5 mg at bedtime. ESTIMATED LENGTH OF STAY: 5-7 days. THE PATIENT'S STRENGTHS AND WEAKNESSES: The patient seems to be in relatively fair health. Weaknesses: Her ineffective coping and poor impulse control. AFTER DISCHARGE PLAN: Outpatient treatment and followup. We will continue in [facility] and the patient most probably will return to [facility]. JOB# [id number]
[2017-12-23] MEDS: Potassium Chloride 10 mEq ER Tab PO SCH (10:00)
[2017-12-23] MEDS: Multivitamin Tab PO SCH (10:00)
[2017-12-23] MEDS: Aspirin 81mg Chewable Tab PO SCH (10:00)
--- NOTE | 2017-12-23 17:53 | Progress Notes ---
DATE: 12/23/2017 SUBJECTIVE: Chart reviewed and the patient interviewed. Also discussed the patient's condition with the staff and reviewed records and labs. The patient continued to be in angry and in irritable mood. The patient also is still restless and she is still demanding. The patient also is uncooperative with the staff and she is still resisting care. She also is still suspicious and paranoid and in angry mood. Otherwise, the patient continued to be demanding and aggressive with staff. ASSESSMENT: The patient is still psychotic and in irritable mood. TREATMENT PLAN: We will continue to monitor her behavior and her medications closely. Also, continue to work on her poor impulse control and her agitation and continue to follow up. [facility]# [id number]
--- NOTE | 2017-12-23 19:26 | Progress Notes ---
DATE: 12/23/2017 SUBJECTIVE: The patient was seen in her room, lying in the bed. The patient appears to be weak and according to nurses, the patient does want to eat and is refusing oral medications. Otherwise, the patient appears to be in no acute distress. OBJECTIVE: VITAL SIGNS: Temperature 97.8, heart rate 97, respiration of 16, blood pressure 124/64, 97% on room air. HEENT: Head is atraumatic and normocephalic. Eyes: Bilateral conjunctivae are clear. Bilateral pupils are equally round and reactive. NECK: Supple. No JVD. CARDIOVASCULAR: S1 and S2, without murmur. PULMONARY: Clear to auscultation. GASTROINTESTINAL: Soft and nontender without guarding. Positive bowel sounds. MUSCULOSKELETAL: No clubbing. No cyanosis noted. ASSESSMENT: 1. Dementia. 2. Diabetes mellitus. 3. Coronary artery disease. 4. Chronic kidney disease. 5. Osteoarthritis. PLAN: We will keep the patient inpatient and will follow up with a psychiatrist to monitor the patient's condition and behavior. Treatment plans were discussed with the patient's nurse. Treatment plans were discussed with Dr. Mary. JOB# [id number]
[2017-12-24] MEDS: Pantoprazole 40 mg EC Tab PO SCH (06:40)
--- NOTE | 2017-12-24 09:09 | General Progress Note ---
Subjective - Review of Systems Events since last encounter: irritable mood awake alert Objective - Results Result Diagrams: 12/21/17 19:15 12/21/17 19:15 Recent Labs: Laboratory Last Values WBC 9.1 Th/cmm (4.8-10.8) D 12/21/17 19:15 RBC 4.19 Mil/cmm (3.80-5.20) 12/21/17 19:15 Hgb 11.9 gm/dL (12-16) L 12/21/17 19:15 Hct 36.2 % (41.0-60) L D 12/21/17 19:15 MCV 86.4 fl (81-100) 12/21/17 19:15 MCH 28.4 pg (27.0-31.0) 12/21/17 19:15 MCHC Differential 32.9 pg (28.0-36.0) 12/21/17 19:15 RDW 12.5 % (11.5-20.0) 12/21/17 19:15 Plt Count 321 Th/cmm (150-400) D 12/21/17 19:15 MPV 9.2 fl 12/21/17 19:15 Neutrophils % 75.8 % (40.0-80.0) 12/21/17 19:15 Lymphocytes % 12.9 % (20.0-50.0) L 12/21/17 19:15 Monocytes % 8.9 % (2.0-10.0) 12/21/17 19:15 Eosinophils % 2.2 % (0.0-5.0) 12/21/17 19:15 Basophils % 0.2 % (0.0-2.0) 12/21/17 19:15 Sodium 140 mEq/L (136-145) 12/21/17 19:15 Potassium 3.4 mEq/L (3.5-5.1) L 12/21/17 19:15 Chloride 108 mEq/L (98-107) H 12/21/17 19:15 Carbon Dioxide 26.1 mEq/L (21.0-31.0) 12/21/17 19:15 Anion Gap 9.3 (7.0-16.0) 12/21/17 19:15 BUN 17 mg/dL (7-25) 12/21/17 19:15 Creatinine 1.9 mg/dL (0.6-1.2) H 12/21/17 19:15 Est GFR ( Amer) TNP 12/21/17 19:15 Est GFR (Non-Af Amer) TNP 12/21/17 19:15 BUN/Creatinine Ratio 8.9 12/21/17 19:15 Glucose 100 mg/dL (70-105) 12/21/17 19:15 Hemoglobin A1c % 5.5 % (4.0-6.0) 12/21/17 19:15 Calcium 9.1 mg/dL (8.6-10.3) 12/21/17 19:15 Total Bilirubin 0.6 mg/dL (0.3-1.0) 12/21/17 19:15 AST 12 U/L (13-39) L 12/21/17 19:15 ALT 7 U/L (7-52) 12/21/17 19:15 Alkaline Phosphatase 47 U/L (34-104) 12/21/17 19:15 Total Protein 6.6 gm/dL (6.0-8.3) 12/21/17 19:15 Albumin 3.5 gm/dL (3.7-5.3) L 12/21/17 19:15 Globulin 3.1 gm/dL 12/21/17 19:15 Albumin/Globulin Ratio 1.1 (1.0-1.8) 12/21/17 19:15 Triglycerides 71 mg/dL (<150) 12/21/17 19:15 Cholesterol 119 mg/dL (<200) 12/21/17 19:15 LDL Cholesterol Direct 68 mg/dL (75-193) L 12/21/17 19:15 HDL Cholesterol 40 mg/dL (23-92) 12/21/17 19:15 TSH 1.65 uIU/ml (0.34-5.60) 12/21/17 19:15 RPR NONREACTIVE (NONREACTIVE) 12/21/17 19:15 - Physical Exam Vitals and I&O: Vital Signs Temp 97.8 F 12/23/17 18:43 Pulse 77 12/23/17 18:43 Resp 20 12/23/17 18:43 BP 121/70 12/23/17 18:43 Pulse Ox 98 12/23/17 18:43 Active Medications: Current Medications Acetaminophen (Tylenol) 650 mg PO Q4HR PRN PRN Reason: Pain or Fever >101 Stop: 02/20/18 00:26 Amlodipine Besylate (Norvasc) 5 mg PO DAILY [facility] Stop: 02/20/18 08:59 Last Admin: 12/23/17 10:10 Dose: 5 mg Aspirin (Aspirin Chewable) 81 mg PO DAILY KRISTIE Stop: 02/20/18 08:59 Last Admin: 12/23/17 10:00 Dose: 81 mg Bisacodyl (Dulcolax 10 Mg Supp) 10 mg RC DAILY PRN PRN Reason: Constipation Stop: 02/20/18 00:26 Carbidopa/Levodopa (Sinemet 25mg-100 Mg) 1 tab PO 2100 [facility] Stop: 02/20/18 20:59 Last Admin: 12/23/17 22:39 Dose: Not Given Carbidopa/Levodopa (Sinemet 25mg-100 Mg) 1 tab PO QID KRISTIE Stop: 02/20/18 08:59 Last Admin: 12/23/17 22:39 Dose: Not Given Docusate Sodium (Colace) 100 mg PO DAILY [facility] Stop: 02/20/18 08:59 Last Admin: 12/23/17 10:00 Dose: 100 mg Folic Acid (Folate) 1 mg PO DAILY [facility] Stop: 02/20/18 08:59 Last Admin: 12/23/17 10:00 Dose: 1 mg Furosemide (Lasix) 20 mg PO DAILY KRISTIE Stop: 02/20/18 08:59 Last Admin: 12/23/17 10:00 Dose: 20 mg Lorazepam (Ativan) 0.5 mg PO Q6HR PRN; Protocol PRN Reason: Agitation Stop: 02/20/18 04:54 Magnesium Hydroxide (Milk Of Magnesia) 30 ml PO DAILY PRN PRN Reason: Constipation Stop: 02/20/18 00:26 Mirtazapine (Remeron) 7.5 mg PO HS KRISTIE PRN Reason: Protocol Stop: 02/20/18 20:59 Multivitamins/Vitamin C (Theragran) 1 tab PO DAILY KRISTIE Stop: 02/20/18 08:59 Last Admin: 12/23/17 10:00 Dose: 1 tab Pantoprazole Sodium (Protonix) 40 mg PO QDAC KRISTIE Stop: 02/20/18 08:59 Last Admin: 12/24/17 06:40 Dose: Not Given Potassium Chloride (Klor-Con) 10 meq PO DAILY KRISTIE Stop: 02/20/18 08:59 Last Admin: 12/23/17 10:00 Dose: 10 meq Quetiapine Fumarate (Seroquel) 12.5 mg PO TID KRISTIE PRN Reason: Protocol Stop: 02/20/18 05:20 Simvastatin (Zocor) 20 mg PO QPM KRISTIE PRN Reason: Protocol Stop: 02/20/18 16:59 Last Admin: 12/23/17 17:26 Dose: 20 mg Sodium Phosphate (Fleet Enema) 135 ml RC Q48HR PRN PRN Reason: Constipation Stop: 02/20/18 00:26 Zolpidem Tartrate (Ambien) 5 mg PO HS PRN PRN Reason: Insomnia Stop: 02/20/18 04:56 - Procedures Procedures: Procedures Procedure Code Date GROUP PSYCHOTHERAPY 47633 10/01/15 GROUP PSYCHOTHERAPY [id number] 10/01/15 GROUP PSYCHOTHERAPY 57365 09/02/03 [facility] PSYCHOTHERAP NEC 94.39 11/27/05 INSERT PACE. DUAL FRANCIS IN CHEST SUBCU/FASCIA, OPEN [id number] 10/09/15 INSERTION OF PACEMAKER LEAD INTO RIGHT ATRIUM, OPEN APPROACH [id number] 10/09/15 INSRT HEART PM ATRIAL & VENT 21889 10/09/15 OTHER GROUP THERAPY 94.44 05/06/08 RECREATIONAL THERAPY 93.81 01/23/08 Assessment/Plan - Problem List Patient Problems: All Active Problems Dementia (Acute) F03.90 HTN (hypertension) (Acute) I10 Parkinson disease (Acute) G20 Psychosis (Acute) F29 Urinary tract infection (Acute)
[2017-12-24] MEDS: Aspirin 81mg Chewable Tab PO SCH (09:44)
[2017-12-24] MEDS: Multivitamin Tab PO SCH (09:45)
[2017-12-24] MEDS: Potassium Chloride 10 mEq ER Tab PO SCH (09:46)
[2017-12-25] MEDS: Pantoprazole 40 mg EC Tab PO SCH (07:00)
[2017-12-25] MEDS: Potassium Chloride 10 mEq ER Tab PO SCH (09:07)
[2017-12-25] MEDS: Aspirin 81mg Chewable Tab PO SCH (09:07)
[2017-12-25] MEDS: Multivitamin Tab PO SCH (09:08)
--- NOTE | 2017-12-25 09:39 | General Progress Note ---
Subjective - Review of Systems Events since last encounter: irritable in no distress Objective - Results Result Diagrams: 12/21/17 19:15 12/21/17 19:15 Recent Labs: Laboratory Last Values WBC 9.1 Th/cmm (4.8-10.8) D 12/21/17 19:15 RBC 4.19 Mil/cmm (3.80-5.20) 12/21/17 19:15 Hgb 11.9 gm/dL (12-16) L 12/21/17 19:15 Hct 36.2 % (41.0-60) L D 12/21/17 19:15 MCV 86.4 fl (81-100) 12/21/17 19:15 MCH 28.4 pg (27.0-31.0) 12/21/17 19:15 MCHC Differential 32.9 pg (28.0-36.0) 12/21/17 19:15 RDW 12.5 % (11.5-20.0) 12/21/17 19:15 Plt Count 321 Th/cmm (150-400) D 12/21/17 19:15 MPV 9.2 fl 12/21/17 19:15 Neutrophils % 75.8 % (40.0-80.0) 12/21/17 19:15 Lymphocytes % 12.9 % (20.0-50.0) L 12/21/17 19:15 Monocytes % 8.9 % (2.0-10.0) 12/21/17 19:15 Eosinophils % 2.2 % (0.0-5.0) 12/21/17 19:15 Basophils % 0.2 % (0.0-2.0) 12/21/17 19:15 Sodium 140 mEq/L (136-145) 12/21/17 19:15 Potassium 3.4 mEq/L (3.5-5.1) L 12/21/17 19:15 Chloride 108 mEq/L (98-107) H 12/21/17 19:15 Carbon Dioxide 26.1 mEq/L (21.0-31.0) 12/21/17 19:15 Anion Gap 9.3 (7.0-16.0) 12/21/17 19:15 BUN 17 mg/dL (7-25) 12/21/17 19:15 Creatinine 1.9 mg/dL (0.6-1.2) H 12/21/17 19:15 Est GFR ( Amer) TNP 12/21/17 19:15 Est GFR (Non-Af Amer) TNP 12/21/17 19:15 BUN/Creatinine Ratio 8.9 12/21/17 19:15 Glucose 100 mg/dL (70-105) 12/21/17 19:15 Hemoglobin A1c % 5.5 % (4.0-6.0) 12/21/17 19:15 Calcium 9.1 mg/dL (8.6-10.3) 12/21/17 19:15 Total Bilirubin 0.6 mg/dL (0.3-1.0) 12/21/17 19:15 AST 12 U/L (13-39) L 12/21/17 19:15 ALT 7 U/L (7-52) 12/21/17 19:15 Alkaline Phosphatase 47 U/L (34-104) 12/21/17 19:15 Total Protein 6.6 gm/dL (6.0-8.3) 12/21/17 19:15 Albumin 3.5 gm/dL (3.7-5.3) L 12/21/17 19:15 Globulin 3.1 gm/dL 12/21/17 19:15 Albumin/Globulin Ratio 1.1 (1.0-1.8) 12/21/17 19:15 Triglycerides 71 mg/dL (<150) 12/21/17 19:15 Cholesterol 119 mg/dL (<200) 12/21/17 19:15 LDL Cholesterol Direct 68 mg/dL (75-193) L 12/21/17 19:15 HDL Cholesterol 40 mg/dL (23-92) 12/21/17 19:15 TSH 1.65 uIU/ml (0.34-5.60) 12/21/17 19:15 RPR NONREACTIVE (NONREACTIVE) 12/21/17 19:15 - Physical Exam Vitals and I&O: Vital Signs Temp 98.2 F 12/25/17 06:27 Pulse 68 12/25/17 09:07 Resp 18 12/25/17 06:27 BP 109/65 12/25/17 09:07 Pulse Ox 95 12/25/17 06:27 Active Medications: Current Medications Acetaminophen (Tylenol) 650 mg PO Q4HR PRN PRN Reason: Pain or Fever >101 Stop: 02/20/18 00:26 Amlodipine Besylate (Norvasc) 5 mg PO DAILY KRISTIE Stop: 02/20/18 08:59 Last Admin: 12/25/17 09:07 Dose: 5 mg Aspirin (Aspirin Chewable) 81 mg PO DAILY KRISTIE Stop: 02/20/18 08:59 Last Admin: 12/25/17 09:07 Dose: 81 mg Bisacodyl (Dulcolax 10 Mg Supp) 10 mg RC DAILY PRN PRN Reason: Constipation Stop: 02/20/18 00:26 Carbidopa/Levodopa (Sinemet 25mg-100 Mg) 1 tab PO 2100 [facility] Stop: 02/20/18 20:59 Last Admin: 12/24/17 21:55 Dose: 1 tab Carbidopa/Levodopa (Sinemet 25mg-100 Mg) 1 tab PO QID KRISTIE Stop: 02/20/18 08:59 Last Admin: 12/24/17 22:04 Dose: 1 tab Docusate Sodium (Colace) 100 mg PO DAILY [facility] Stop: 02/20/18 08:59 Last Admin: 12/25/17 09:07 Dose: 100 mg Folic Acid (Folate) 1 mg PO DAILY KRISTIE Stop: 02/20/18 08:59 Last Admin: 12/25/17 09:05 Dose: 1 mg Furosemide (Lasix) 20 mg PO DAILY KRISTIE Stop: 02/20/18 08:59 Last Admin: 12/25/17 09:06 Dose: 20 mg Lorazepam (Ativan) 0.5 mg PO Q6HR PRN; Protocol PRN Reason: Agitation Stop: 02/20/18 04:54 Magnesium Hydroxide (Milk Of Magnesia) 30 ml PO DAILY PRN PRN Reason: Constipation Stop: 02/20/18 00:26 Mirtazapine (Remeron) 7.5 mg PO HS KRISTIE PRN Reason: Protocol Stop: 02/20/18 20:59 Last Admin: 12/24/17 21:55 Dose: 7.5 mg Multivitamins/Vitamin C (Theragran) 1 tab PO DAILY KRISTIE Stop: 02/20/18 08:59 Last Admin: 12/25/17 09:08 Dose: 1 tab Pantoprazole Sodium (Protonix) 40 mg PO QDAC KRISTIE Stop: 02/20/18 08:59 Last Admin: 12/25/17 07:00 Dose: 40 mg Potassium Chloride (Klor-Con) 10 meq PO DAILY [facility] Stop: 02/20/18 08:59 Last Admin: 12/25/17 09:07 Dose: 10 meq Quetiapine Fumarate (Seroquel) 12.5 mg PO TID KRISTIE PRN Reason: Protocol Stop: 02/20/18 05:20 Last Admin: 12/25/17 09:09 Dose: 12.5 mg Simvastatin (Zocor) 20 mg PO QPM KRISTIE PRN Reason: Protocol Stop: 02/20/18 16:59 Last Admin: 12/24/17 17:10 Dose: 20 mg Sodium Phosphate (Fleet Enema) 135 ml RC Q48HR PRN PRN Reason: Constipation Stop: 02/20/18 00:26 Zolpidem Tartrate (Ambien) 5 mg PO HS PRN PRN Reason: Insomnia Stop: 02/20/18 04:56 - Procedures Procedures: Procedures Procedure Code Date GROUP PSYCHOTHERAPY 81088 10/01/15 GROUP PSYCHOTHERAPY [id number] 10/01/15 GROUP PSYCHOTHERAPY 19172 09/02/03 INDIVID PSYCHOTHERAP NEC 94.39 11/27/05 INSERT PACE. DUAL FRANCIS IN CHEST SUBCU/FASCIA, OPEN [id number] 10/09/15 INSERTION OF PACEMAKER LEAD INTO RIGHT ATRIUM, OPEN APPROACH [id number] 10/09/15 INSRT HEART PM ATRIAL & VENT [id number] 10/09/15 OTHER GROUP THERAPY 94.44 05/06/08 RECREATIONAL THERAPY 93.81 01/23/08 Assessment/Plan - Problem List Patient Problems: All Active Problems Dementia (Acute) F03.90 HTN (hypertension) (Acute) I10 Parkinson disease (Acute) G20 Psychosis (Acute) F29 Urinary tract infection (Acute)
[2017-12-26] MEDS: Pantoprazole 40 mg EC Tab PO SCH (07:12)
[2017-12-26] MEDS: Aspirin 81mg Chewable Tab PO SCH (09:40)
[2017-12-26] MEDS: Potassium Chloride 10 mEq ER Tab PO SCH (09:40)
[2017-12-26] MEDS: Multivitamin Tab PO SCH (09:41)
--- NOTE | 2017-12-26 12:29 | Internal Medicine Prog Note ---
Internal Medicine Subjective - Subjective Service Date: 12/26/17 Patient seen and examined:: with staff Patient is:: awake Per staff patient has:: tolerating meds Internal Medicine Objective - Results Result Diagrams: 12/21/17 19:15 12/21/17 19:15 Recent Labs: Laboratory Last Values WBC 9.1 Th/cmm (4.8-10.8) D 12/21/17 19:15 RBC 4.19 Mil/cmm (3.80-5.20) 12/21/17 19:15 Hgb 11.9 gm/dL (12-16) L 12/21/17 19:15 Hct 36.2 % (41.0-60) L D 12/21/17 19:15 MCV 86.4 fl (81-100) 12/21/17 19:15 MCH 28.4 pg (27.0-31.0) 12/21/17 19:15 MCHC Differential 32.9 pg (28.0-36.0) 12/21/17 19:15 RDW 12.5 % (11.5-20.0) 12/21/17 19:15 Plt Count 321 Th/cmm (150-400) D 12/21/17 19:15 MPV 9.2 fl 12/21/17 19:15 Neutrophils % 75.8 % (40.0-80.0) 12/21/17 19:15 Lymphocytes % 12.9 % (20.0-50.0) L 12/21/17 19:15 Monocytes % 8.9 % (2.0-10.0) 12/21/17 19:15 Eosinophils % 2.2 % (0.0-5.0) 12/21/17 19:15 Basophils % 0.2 % (0.0-2.0) 12/21/17 19:15 Sodium 140 mEq/L (136-145) 12/21/17 19:15 Potassium 3.4 mEq/L (3.5-5.1) L 12/21/17 19:15 Chloride 108 mEq/L (98-107) H 12/21/17 19:15 Carbon Dioxide 26.1 mEq/L (21.0-31.0) 12/21/17 19:15 Anion Gap 9.3 (7.0-16.0) 12/21/17 19:15 BUN 17 mg/dL (7-25) 12/21/17 19:15 Creatinine 1.9 mg/dL (0.6-1.2) H 12/21/17 19:15 Est GFR ( Amer) TNP 12/21/17 19:15 Est GFR (Non-Af Amer) TNP 12/21/17 19:15 BUN/Creatinine Ratio 8.9 12/21/17 19:15 Glucose 100 mg/dL (70-105) 12/21/17 19:15 Hemoglobin A1c % 5.5 % (4.0-6.0) 12/21/17 19:15 Calcium 9.1 mg/dL (8.6-10.3) 12/21/17 19:15 Total Bilirubin 0.6 mg/dL (0.3-1.0) 12/21/17 19:15 AST 12 U/L (13-39) L 12/21/17 19:15 ALT 7 U/L (7-52) 12/21/17 19:15 Alkaline Phosphatase 47 U/L (34-104) 12/21/17 19:15 Total Protein 6.6 gm/dL (6.0-8.3) 12/21/17 19:15 Albumin 3.5 gm/dL (3.7-5.3) L 12/21/17 19:15 Globulin 3.1 gm/dL 12/21/17 19:15 Albumin/Globulin Ratio 1.1 (1.0-1.8) 12/21/17 19:15 Triglycerides 71 mg/dL (<150) 12/21/17 19:15 Cholesterol 119 mg/dL (<200) 12/21/17 19:15 LDL Cholesterol Direct 68 mg/dL (75-193) L 12/21/17 19:15 HDL Cholesterol 40 mg/dL (23-92) 12/21/17 19:15 TSH 1.65 uIU/ml (0.34-5.60) 12/21/17 19:15 RPR NONREACTIVE (NONREACTIVE) 12/21/17 19:15 - Physical Exam Vitals and I&O: Vital Signs Temp 98.3 F 12/26/17 06:33 Pulse 69 12/26/17 06:33 Resp 20 12/26/17 06:33 BP 102/59 12/26/17 09:41 Pulse Ox 97 12/26/17 06:33 Intake & Output 12/25/17 12/26/17 12/26/17 18:59 06:59 18:59 Intake Total 500 Balance 500 Intake: Oral 500 Other: # Voids 2 Active Medications: Current Medications Acetaminophen (Tylenol) 650 mg PO Q4HR PRN PRN Reason: Pain or Fever >101 Stop: 02/20/18 00:26 Amlodipine Besylate (Norvasc) 5 mg PO DAILY [facility] Stop: 02/20/18 08:59 Last Admin: 12/25/17 09:07 Dose: 5 mg Aspirin (Aspirin Chewable) 81 mg PO DAILY [facility] Stop: 02/20/18 08:59 Last Admin: 12/26/17 09:40 Dose: 81 mg Bisacodyl (Dulcolax 10 Mg Supp) 10 mg RC DAILY PRN PRN Reason: Constipation Stop: 02/20/18 00:26 Carbidopa/Levodopa (Sinemet 25mg-100 Mg) 1 tab PO 2100 [facility] Stop: 02/20/18 20:59 Last Admin: 12/25/17 21:00 Dose: Not Given Carbidopa/Levodopa (Sinemet 25mg-100 Mg) 1 tab PO QID [facility] Stop: 02/20/18 08:59 Last Admin: 12/26/17 09:41 Dose: 1 tab Docusate Sodium (Colace) 100 mg PO DAILY [facility] Stop: 02/20/18 08:59 Last Admin: 12/26/17 09:40 Dose: 100 mg Folic Acid (Folate) 1 mg PO DAILY [facility] Stop: 02/20/18 08:59 Last Admin: 12/26/17 09:41 Dose: 1 mg Furosemide (Lasix) 20 mg PO DAILY [facility] Stop: 02/20/18 08:59 Last Admin: 12/26/17 09:41 Dose: 20 mg Lorazepam (Ativan) 0.5 mg PO Q6HR PRN; Protocol PRN Reason: Agitation Stop: 02/20/18 04:54 Magnesium Hydroxide (Milk Of Magnesia) 30 ml PO DAILY PRN PRN Reason: Constipation Stop: 02/20/18 00:26 Mirtazapine (Remeron) 7.5 mg PO HS [facility] PRN Reason: Protocol Stop: 02/20/18 20:59 Last Admin: 12/25/17 21:00 Dose: Not Given Multivitamins/Vitamin C (Theragran) 1 tab PO DAILY [facility] Stop: 02/20/18 08:59 Last Admin: 12/26/17 09:41 Dose: 1 tab Pantoprazole Sodium (Protonix) 40 mg PO QDAC [facility] Stop: 02/20/18 08:59 Last Admin: 12/26/17 07:12 Dose: Not Given Potassium Chloride (Klor-Con) 10 meq PO DAILY [facility] Stop: 02/20/18 08:59 Last Admin: 12/26/17 09:40 Dose: 10 meq Quetiapine Fumarate (Seroquel) 12.5 mg PO TID [facility] PRN Reason: Protocol Stop: 02/20/18 05:20 Last Admin: 12/25/17 21:00 Dose: Not Given Simvastatin (Zocor) 20 mg PO QPM [facility] PRN Reason: Protocol Stop: 02/20/18 16:59 Last Admin: 12/25/17 17:26 Dose: 20 mg Sodium Phosphate (Fleet Enema) 135 ml RC Q48HR PRN PRN Reason: Constipation Stop: 02/20/18 00:26 Zolpidem Tartrate (Ambien) 5 mg PO HS PRN PRN Reason: Insomnia Stop: 02/20/18 04:56 General: alert HEENT: NC/AT, PERRLA Lungs: CTAB Cardiovascular: RRR, Normal S1, Normal S2 Abdomen: soft, non-tender, non-distended, positive bowel sound Neurological: alert - Procedures Procedures: Procedures Procedure Code Date GROUP PSYCHOTHERAPY 67083 10/01/15 GROUP PSYCHOTHERAPY GZHZZZZ 10/01/15 GROUP PSYCHOTHERAPY 63633 09/02/03 [facility] PSYCHOTHERAP NEC 94.39 11/27/05 INSERT PACE. DUAL FRANCIS IN CHEST SUBCU/FASCIA, OPEN [id number] 10/09/15 INSERTION OF PACEMAKER LEAD INTO RIGHT ATRIUM, OPEN APPROACH [id number] 10/09/15 INSRT HEART PM ATRIAL & VENT 27041 10/09/15 OTHER GROUP THERAPY 94.44 08 RECREATIONAL THERAPY 93.81 01/23/08 Internal Medicine Assmt/Plan - Assessment Assessment: DM STAGE IV RENAL DISEASE DEMENTIA DEPRESSION [facility] - Plan Plan: monitor glucose fall precautions monitor i+o continue current orders
--- NOTE | 2017-12-26 13:16 | Progress Notes ---
DATE: 12/24/2017 SUBJECTIVE: Chart reviewed and the patient interviewed. Also discussed the patient's condition with the staff and reviewed records and labs. The patient is still confused. She also is anxious and withdrawn. She also still has periods of irritability and resisting care, but she is more cooperative than before in regard to her care. She also did take her medications yesterday. She is still forgetful and needs lots of redirections. ASSESSMENT: The patient is still confused and considered to be gravely disabled. TREATMENT PLAN: Continue to monitor her condition and her medications closely. Also, continue adjusting psychotropic medications and followup. [facility]# [id number]
[2017-12-27] MEDS: Aspirin 81mg Chewable Tab PO SCH (08:58)
[2017-12-27] MEDS: Multivitamin Tab PO SCH (09:00)
[2017-12-27] MEDS: Potassium Chloride 10 mEq ER Tab PO SCH (09:00)
[2017-12-27] MEDS: Pantoprazole 40 mg EC Tab PO SCH (09:00)
--- NOTE | 2017-12-27 09:43 | General Progress Note ---
Subjective - Review of Systems Events since last encounter: patient awake alert in no distresss Objective - Results Result Diagrams: 12/21/17 19:15 12/21/17 19:15 Recent Labs: Laboratory Last Values WBC 9.1 Th/cmm (4.8-10.8) D 12/21/17 19:15 RBC 4.19 Mil/cmm (3.80-5.20) 12/21/17 19:15 Hgb 11.9 gm/dL (12-16) L 12/21/17 19:15 Hct 36.2 % (41.0-60) L D 12/21/17 19:15 MCV 86.4 fl (81-100) 12/21/17 19:15 MCH 28.4 pg (27.0-31.0) 12/21/17 19:15 MCHC Differential 32.9 pg (28.0-36.0) 12/21/17 19:15 RDW 12.5 % (11.5-20.0) 12/21/17 19:15 Plt Count 321 Th/cmm (150-400) D 12/21/17 19:15 MPV 9.2 fl 12/21/17 19:15 Neutrophils % 75.8 % (40.0-80.0) 12/21/17 19:15 Lymphocytes % 12.9 % (20.0-50.0) L 12/21/17 19:15 Monocytes % 8.9 % (2.0-10.0) 12/21/17 19:15 Eosinophils % 2.2 % (0.0-5.0) 12/21/17 19:15 Basophils % 0.2 % (0.0-2.0) 12/21/17 19:15 Sodium 140 mEq/L (136-145) 12/21/17 19:15 Potassium 3.4 mEq/L (3.5-5.1) L 12/21/17 19:15 Chloride 108 mEq/L (98-107) H 12/21/17 19:15 Carbon Dioxide 26.1 mEq/L (21.0-31.0) 12/21/17 19:15 Anion Gap 9.3 (7.0-16.0) 12/21/17 19:15 BUN 17 mg/dL (7-25) 12/21/17 19:15 Creatinine 1.9 mg/dL (0.6-1.2) H 12/21/17 19:15 Est GFR ( Amer) TNP 12/21/17 19:15 Est GFR (Non-Af Amer) TNP 12/21/17 19:15 BUN/Creatinine Ratio 8.9 12/21/17 19:15 Glucose 100 mg/dL (70-105) 12/21/17 19:15 Hemoglobin A1c % 5.5 % (4.0-6.0) 12/21/17 19:15 Calcium 9.1 mg/dL (8.6-10.3) 12/21/17 19:15 Total Bilirubin 0.6 mg/dL (0.3-1.0) 12/21/17 19:15 AST 12 U/L (13-39) L 12/21/17 19:15 ALT 7 U/L (7-52) 12/21/17 19:15 Alkaline Phosphatase 47 U/L (34-104) 12/21/17 19:15 Total Protein 6.6 gm/dL (6.0-8.3) 12/21/17 19:15 Albumin 3.5 gm/dL (3.7-5.3) L 12/21/17 19:15 Globulin 3.1 gm/dL 12/21/17 19:15 Albumin/Globulin Ratio 1.1 (1.0-1.8) 12/21/17 19:15 Triglycerides 71 mg/dL (<150) 12/21/17 19:15 Cholesterol 119 mg/dL (<200) 12/21/17 19:15 LDL Cholesterol Direct 68 mg/dL (75-193) L 12/21/17 19:15 HDL Cholesterol 40 mg/dL (23-92) 12/21/17 19:15 TSH 1.65 uIU/ml (0.34-5.60) 12/21/17 19:15 RPR NONREACTIVE (NONREACTIVE) 12/21/17 19:15 - Physical Exam Vitals and I&O: Vital Signs Temp 97.8 F 12/26/17 22:00 Pulse 78 12/27/17 08:59 Resp 20 12/26/17 22:00 BP 114/70 12/27/17 08:59 Pulse Ox 98 12/26/17 22:00 Intake & Output 12/26/17 12/27/17 12/27/17 18:59 06:59 18:59 Intake Total 240 Balance 240 Intake: Oral 240 Other: # Voids 1 Active Medications: Current Medications Acetaminophen (Tylenol) 650 mg PO Q4HR PRN PRN Reason: Pain or Fever >101 Stop: 02/20/18 00:26 Amlodipine Besylate (Norvasc) 5 mg PO DAILY [facility] Stop: 02/20/18 08:59 Last Admin: 12/27/17 08:59 Dose: 5 mg Aspirin (Aspirin Chewable) 81 mg PO DAILY [facility] Stop: 02/20/18 08:59 Last Admin: 12/27/17 08:58 Dose: 81 mg Bisacodyl (Dulcolax 10 Mg Supp) 10 mg RC DAILY PRN PRN Reason: Constipation Stop: 02/20/18 00:26 Carbidopa/Levodopa (Sinemet 25mg-100 Mg) 1 tab PO 2100 [facility] Stop: 02/20/18 20:59 Last Admin: 12/26/17 21:58 Dose: Not Given Carbidopa/Levodopa (Sinemet 25mg-100 Mg) 1 tab PO QID [facility] Stop: 02/20/18 08:59 Last Admin: 12/27/17 08:58 Dose: 1 tab Docusate Sodium (Colace) 100 mg PO DAILY [facility] Stop: 02/20/18 08:59 Last Admin: 12/27/17 08:58 Dose: 100 mg Folic Acid (Folate) 1 mg PO DAILY [facility] Stop: 02/20/18 08:59 Last Admin: 12/27/17 08:57 Dose: 1 mg Furosemide (Lasix) 20 mg PO DAILY [facility] Stop: 02/20/18 08:59 Last Admin: 12/27/17 08:57 Dose: 20 mg Lorazepam (Ativan) 0.5 mg PO Q6HR PRN; Protocol PRN Reason: Agitation Stop: 02/20/18 04:54 Magnesium Hydroxide (Milk Of Magnesia) 30 ml PO DAILY PRN PRN Reason: Constipation Stop: 02/20/18 00:26 Mirtazapine (Remeron) 7.5 mg PO HS [facility] PRN Reason: Protocol Stop: 02/20/18 20:59 Last Admin: 12/26/17 21:58 Dose: Not Given Multivitamins/Vitamin C (Theragran) 1 tab PO DAILY [facility] Stop: 02/20/18 08:59 Last Admin: 12/27/17 09:00 Dose: 1 tab Olanzapine (Zyprexa Zydis) 5 mg PO BID [facility] PRN Reason: Protocol Stop: 02/25/18 08:59 Pantoprazole Sodium (Protonix) 40 mg PO QDAC [facility] Stop: 02/20/18 08:59 Last Admin: 12/27/17 09:00 Dose: Not Given Potassium Chloride (Klor-Con) 10 meq PO DAILY [facility] Stop: 02/20/18 08:59 Last Admin: 12/27/17 09:00 Dose: 10 meq Simvastatin (Zocor) 20 mg PO QPM [facility] PRN Reason: Protocol Stop: 02/20/18 16:59 Last Admin: 12/26/17 17:39 Dose: 20 mg Sodium Phosphate (Fleet Enema) 135 ml RC Q48HR PRN PRN Reason: Constipation Stop: 02/20/18 00:26 Zolpidem Tartrate (Ambien) 5 mg PO HS PRN PRN Reason: Insomnia Stop: 02/20/18 04:56 - Procedures Procedures: Procedures Procedure Code Date GROUP PSYCHOTHERAPY 50391 10/01/15 GROUP PSYCHOTHERAPY GZHZZZZ 10/01/15 GROUP PSYCHOTHERAPY 49361 09/02/03 INDIVID PSYCHOTHERAP NEC 94.39 11/27/05 INSERT PACE. DUAL FRANCIS IN CHEST SUBCU/FASCIA, OPEN [id number] 10/09/15 INSERTION OF PACEMAKER LEAD INTO RIGHT ATRIUM, OPEN APPROACH [id number] 10/09/15 INSRT HEART PM ATRIAL & VENT 01290 10/09/15 OTHER GROUP THERAPY 94.44 05/06/08 RECREATIONAL THERAPY 93.81 01/23/08 Assessment/Plan - Problem List Patient Problems: All Active Problems Dementia (Acute) F03.90 HTN (hypertension) (Acute) I10 Parkinson disease (Acute) G20 Psychosis (Acute) F29 Urinary tract infection (Acute) Nutritional Asmnt/Malnutr-PDOC - Dietary Evaluation Malnutrition Findings (Please click <Entered> for more info): Nutritional Asmnt/Malnutrition Start: 12/26/17 18: 33 Text: Status: Complete Freq: Document 12/26/17 18:33 LCHENG (Rec: 12/26/17 18:38 LCHENG [email or web address]) Nutritional Asmnt/Malnutrition Patient General Information Nutritional Screening Moderate Risk Diagnosis psychosis Pertinent Medical Hx/Surgical Hx DM, CAD, stage 4 renal disease , dementia, parkinson's disease, depression Subjective Information Per records, PO intake 75-100% Current Diet Order/ Nutrition Support CCHO-60gm Pertinent Medications colace, folate, lasix, remeron , Theragran,protonix, kcl, seroquel Pertinent Labs 12/21 K 3.4, Cl 108, Cr 1.9, Glucose 100, A1c 5.5 Nutritional Hx/Data Height 1.57 m Height (Calculated Centimeters) 157.5 Current Weight (lbs) 68.039 kg Weight (Calculated Kilograms) 68.0 Weight (Calculated Grams) 41920.9 [place] Body Weight 110 Body Mass Index (BMI) 27.4 Weight Status Overweight GI Symptoms GI Symptoms None Last BM 2/2 Difficult in: None Skin Integrity/Comment: intact Current %PO Good (75-100%) Estimated Nutritional Goals BEE in Kcals: Adj wt of IBW Calories/Kcals/Kg 25-30 Kcals Calculated 6384-3450 Protein: Adj wt of IBW Protein g/k Protein Calculated 55 Fluid: ml 3438-2305 Nutritional Problem No current Nutrition Prob Problem N/A Malnutrition Alert Protein-Calorie Malnutrition N/A Is there a minimum of two criteria No selected? Query Text:Check all the applicable criteria. A minimum of two criteria are recommended for diagnosis of either severe or non-severe malnutrition. Intervention/Recommendation Comments 1. Recommend regular diet d/t blood glucose and A1c WNL 2. Monitor PO intake, wt, labs and skin integrity 3. F/U as low risk in 7 days, 01/02 Expected Outcomes/Goals Expected Outcomes/Goals 1. PO intake to meet at least 75% of nutritional needs. 2. Wt stability, skin to remain intact, labs to approach WNL.
[2017-12-27] MEDS: OLANZapine 5 mg Oral Disintegrating Tab PO SCH ×2 (13:21→16:45)
--- NOTE | 2017-12-27 23:17 | Progress Notes ---
DATE: 12/25/2017 PSYCHIATRIC PROGRESS NOTE SUBJECTIVE: Chart reviewed and the patient interviewed. Also discussed the patient's condition with the staff and reviewed records and labs. The patient is still anxious and is still in irritable mood. The patient also is still easily agitated. The patient also is suspicious and is still paranoid. The patient also resisting care and she is still selective and sometimes agreed to take medications and sometimes not. Otherwise, the patient is less suspicious and less paranoid. ASSESSMENT: The patient is still psychotic and needs close monitoring. TREATMENT PLAN: Continue to monitor her behavior and her condition closely and continue to follow up and work on behavior modifications and compliance with medications. JOB# [id number]
[2017-12-28] MEDS: Pantoprazole 40 mg EC Tab PO SCH (06:40)
--- NOTE | 2017-12-28 08:42 | General Progress Note ---
Subjective - Review of Systems Events since last encounter: still psychotic in no distress Objective - Results Result Diagrams: 12/21/17 19:15 12/21/17 19:15 Recent Labs: Laboratory Last Values WBC 9.1 Th/cmm (4.8-10.8) D 12/21/17 19:15 RBC 4.19 Mil/cmm (3.80-5.20) 12/21/17 19:15 Hgb 11.9 gm/dL (12-16) L 12/21/17 19:15 Hct 36.2 % (41.0-60) L D 12/21/17 19:15 MCV 86.4 fl (81-100) 12/21/17 19:15 MCH 28.4 pg (27.0-31.0) 12/21/17 19:15 MCHC Differential 32.9 pg (28.0-36.0) 12/21/17 19:15 RDW 12.5 % (11.5-20.0) 12/21/17 19:15 Plt Count 321 Th/cmm (150-400) D 12/21/17 19:15 MPV 9.2 fl 12/21/17 19:15 Neutrophils % 75.8 % (40.0-80.0) 12/21/17 19:15 Lymphocytes % 12.9 % (20.0-50.0) L 12/21/17 19:15 Monocytes % 8.9 % (2.0-10.0) 12/21/17 19:15 Eosinophils % 2.2 % (0.0-5.0) 12/21/17 19:15 Basophils % 0.2 % (0.0-2.0) 12/21/17 19:15 Sodium 140 mEq/L (136-145) 12/21/17 19:15 Potassium 3.4 mEq/L (3.5-5.1) L 12/21/17 19:15 Chloride 108 mEq/L (98-107) H 12/21/17 19:15 Carbon Dioxide 26.1 mEq/L (21.0-31.0) 12/21/17 19:15 Anion Gap 9.3 (7.0-16.0) 12/21/17 19:15 BUN 17 mg/dL (7-25) 12/21/17 19:15 Creatinine 1.9 mg/dL (0.6-1.2) H 12/21/17 19:15 Est GFR ( Amer) TNP 12/21/17 19:15 Est GFR (Non-Af Amer) TNP 12/21/17 19:15 BUN/Creatinine Ratio 8.9 12/21/17 19:15 Glucose 100 mg/dL (70-105) 12/21/17 19:15 Hemoglobin A1c % 5.5 % (4.0-6.0) 12/21/17 19:15 Calcium 9.1 mg/dL (8.6-10.3) 12/21/17 19:15 Total Bilirubin 0.6 mg/dL (0.3-1.0) 12/21/17 19:15 AST 12 U/L (13-39) L 12/21/17 19:15 ALT 7 U/L (7-52) 12/21/17 19:15 Alkaline Phosphatase 47 U/L (34-104) 12/21/17 19:15 Total Protein 6.6 gm/dL (6.0-8.3) 12/21/17 19:15 Albumin 3.5 gm/dL (3.7-5.3) L 12/21/17 19:15 Globulin 3.1 gm/dL 12/21/17 19:15 Albumin/Globulin Ratio 1.1 (1.0-1.8) 12/21/17 19:15 Triglycerides 71 mg/dL (<150) 12/21/17 19:15 Cholesterol 119 mg/dL (<200) 12/21/17 19:15 LDL Cholesterol Direct 68 mg/dL (75-193) L 12/21/17 19:15 HDL Cholesterol 40 mg/dL (23-92) 12/21/17 19:15 TSH 1.65 uIU/ml (0.34-5.60) 12/21/17 19:15 RPR NONREACTIVE (NONREACTIVE) 12/21/17 19:15 - Physical Exam Vitals and I&O: Vital Signs Temp 97.6 F 12/27/17 15:32 Pulse 86 12/27/17 15:32 Resp 18 12/27/17 15:32 BP 90/51 12/27/17 15:32 Pulse Ox 95 12/27/17 15:32 Intake & Output 12/27/17 12/28/17 12/28/17 18:59 06:59 18:59 Intake Total 500 Balance 500 Intake: Oral 500 Other: # Voids 2 # Bowel Movements 1 Stool Characteristics Soft Liquid Active Medications: Current Medications Acetaminophen (Tylenol) 650 mg PO Q4HR PRN PRN Reason: Pain or Fever >101 Stop: 02/20/18 00:26 Amlodipine Besylate (Norvasc) 5 mg PO DAILY [facility] Stop: 02/20/18 08:59 Last Admin: 12/27/17 08:59 Dose: 5 mg Aspirin (Aspirin Chewable) 81 mg PO DAILY [facility] Stop: 02/20/18 08:59 Last Admin: 12/27/17 08:58 Dose: 81 mg Bisacodyl (Dulcolax 10 Mg Supp) 10 mg RC DAILY PRN PRN Reason: Constipation Stop: 02/20/18 00:26 Carbidopa/Levodopa (Sinemet 25mg-100 Mg) 1 tab PO 2100 [facility] Stop: 02/20/18 20:59 Last Admin: 12/27/17 21:00 Dose: Not Given Carbidopa/Levodopa (Sinemet 25mg-100 Mg) 1 tab PO QID [facility] Stop: 02/20/18 08:59 Last Admin: 12/27/17 21:00 Dose: Not Given Docusate Sodium (Colace) 100 mg PO DAILY [facility] Stop: 02/20/18 08:59 Last Admin: 12/27/17 08:58 Dose: 100 mg Folic Acid (Folate) 1 mg PO DAILY [facility] Stop: 02/20/18 08:59 Last Admin: 12/27/17 08:57 Dose: 1 mg Furosemide (Lasix) 20 mg PO DAILY [facility] Stop: 02/20/18 08:59 Last Admin: 12/27/17 08:57 Dose: 20 mg Loperamide HCl (Imodium) 2 mg PO Q12HR PRN PRN Reason: Diarrhea Stop: 02/25/18 20:59 Last Admin: 12/28/17 06:40 Dose: 2 mg Lorazepam (Ativan) 0.5 mg PO Q6HR PRN; Protocol PRN Reason: Agitation Stop: 02/20/18 04:54 Magnesium Hydroxide (Milk Of Magnesia) 30 ml PO DAILY PRN PRN Reason: Constipation Stop: 02/20/18 00:26 Mirtazapine (Remeron) 7.5 mg PO HS [facility] PRN Reason: Protocol Stop: 02/20/18 20:59 Last Admin: 12/27/17 21:00 Dose: Not Given Multivitamins/Vitamin C (Theragran) 1 tab PO DAILY [facility] Stop: 02/20/18 08:59 Last Admin: 12/27/17 09:00 Dose: 1 tab Olanzapine (Zyprexa Zydis) 5 mg PO BID [facility] PRN Reason: Protocol Stop: 02/25/18 08:59 Last Admin: 12/27/17 16:45 Dose: 5 mg Pantoprazole Sodium (Protonix) 40 mg PO QDAC [facility] Stop: 02/20/18 08:59 Last Admin: 12/28/17 06:40 Dose: 40 mg Potassium Chloride (Klor-Con) 10 meq PO DAILY [facility] Stop: 02/20/18 08:59 Last Admin: 12/27/17 09:00 Dose: 10 meq Simvastatin (Zocor) 20 mg PO QPM [facility] PRN Reason: Protocol Stop: 02/20/18 16:59 Last Admin: 12/27/17 16:45 Dose: 20 mg Sodium Phosphate (Fleet Enema) 135 ml RC Q48HR PRN PRN Reason: Constipation Stop: 02/20/18 00:26 Zolpidem Tartrate (Ambien) 5 mg PO HS PRN PRN Reason: Insomnia Stop: 02/20/18 04:56 - Procedures Procedures: Procedures Procedure Code Date GROUP PSYCHOTHERAPY 54764 10/01/15 GROUP PSYCHOTHERAPY GZHZZZZ 10/01/15 GROUP PSYCHOTHERAPY 41075 09/02/03 INDIVID PSYCHOTHERAP NEC 94.39 11/27/05 INSERT PACE. DUAL FRANCIS IN CHEST SUBCU/FASCIA, OPEN [id number] 10/09/15 INSERTION OF PACEMAKER LEAD INTO RIGHT ATRIUM, OPEN APPROACH [id number] 10/09/15 INSRT HEART PM ATRIAL & VENT 70963 10/09/15 OTHER GROUP THERAPY 94.44 05/06/08 RECREATIONAL THERAPY 93.81 01/23/08 Assessment/Plan - Problem List Patient Problems: All Active Problems Dementia (Acute) F03.90 HTN (hypertension) (Acute) I10 Parkinson disease (Acute) G20 Psychosis (Acute) F29 Urinary tract infection (Acute) Nutritional Asmnt/Malnutr-PDOC - Dietary Evaluation Malnutrition Findings (Please click <Entered> for more info): Nutritional Asmnt/Malnutrition Start: 12/26/17 18: 33 Text: Status: Complete Freq: Document 12/26/17 18:33 ROXANA (Rec: 12/26/17 18:38 ROXANA [email or web address]) Nutritional Asmnt/Malnutrition Patient General Information Nutritional Screening Moderate Risk Diagnosis psychosis Pertinent Medical Hx/Surgical Hx DM, CAD, stage 4 renal disease , dementia, parkinson's disease, depression Subjective Information Per records, PO intake 75-100% Current Diet Order/ Nutrition Support CCHO-60gm Pertinent Medications colace, folate, lasix, remeron , Theragran,protonix, kcl, seroquel Pertinent Labs 12/21 K 3.4, Cl 108, Cr 1.9, Glucose 100, A1c 5.5 Nutritional Hx/Data Height 1.57 m Height (Calculated Centimeters) 157.5 Current Weight (lbs) 68.039 kg Weight (Calculated Kilograms) 68.0 Weight (Calculated Grams) 85645.9 [place] Body Weight 110 Body Mass Index (BMI) 27.4 Weight Status Overweight GI Symptoms GI Symptoms None Last BM 2/2 Difficult in: None Skin Integrity/Comment: intact Current %PO Good (75-100%) Estimated Nutritional Goals BEE in Kcals: Adj wt of IBW Calories/Kcals/Kg 25-30 Kcals Calculated 8325-6551 Protein: Adj wt of IBW Protein g/k Protein Calculated 55 Fluid: ml 2618-5008 Nutritional Problem No current Nutrition Prob Problem N/A Malnutrition Alert Protein-Calorie Malnutrition N/A Is there a minimum of two criteria No selected? Query Text:Check all the applicable criteria. A minimum of two criteria are recommended for diagnosis of either severe or non-severe malnutrition. Intervention/Recommendation Comments 1. Recommend regular diet d/t blood glucose and A1c WNL 2. Monitor PO intake, wt, labs and skin integrity 3. F/U as low risk in 7 days, 01/02 Expected Outcomes/Goals Expected Outcomes/Goals 1. PO intake to meet at least 75% of nutritional needs. 2. Wt stability, skin to remain intact, labs to approach WNL.
[2017-12-28] MEDS: Aspirin 81mg Chewable Tab PO SCH (09:30)
[2017-12-28] MEDS: Multivitamin Tab PO SCH (09:33)
[2017-12-28] MEDS: OLANZapine 5 mg Oral Disintegrating Tab PO SCH ×2 (09:33→16:52)
[2017-12-28] MEDS: Potassium Chloride 10 mEq ER Tab PO SCH (09:33)
[2017-12-29] MEDS: Pantoprazole 40 mg EC Tab PO SCH (06:41)
--- NOTE | 2017-12-29 07:19 | Consultation ---
DATE OF CONSULTATION: 12/28/2017 REASON FOR CONSULTATION: Decreased oral intake, dysphagia. HISTORY OF PRESENT ILLNESS: This consult was obtained through the courtesy of Dr. Mary and Dr. Hernandez for this 82-year-old with multiple problems including psych problem, diabetes, coronary artery disease, dementia, Parkinson disease, depression; in Geropsych unit, has difficulty swallowing. It was basically between refusing intake and taking enough. She also had some aggressive behavior, which seems to have improved, but now the patient complaining of difficulty swallowing. She underwent swallowing evaluation, which she passed it, but with some modification. So now, GI consult was called and the patient admits to some difficulty swallowing and some pain in her throat. PAST MEDICAL HISTORY: Diabetes, coronary artery disease, dementia, chronic kidney disease, Parkinson disease, and depression. PAST SURGICAL HISTORY: Not known. SOCIAL HISTORY: The patient denies smoking, alcohol, or drugs. FAMILY HISTORY: Noncontributory. ALLERGIES: No known drug allergies. MEDICATIONS: The patient is on Tylenol, Norvasc, aspirin, Dulcolax, Sinemet, Colace, folate, Lasix, Imodium, Ativan, milk of magnesia, Remeron, Theragran, Zyprexa, Protonix, Klor-Con, Zocor, Fleets enema, and Ambien. REVIEW OF SYSTEMS: As per history of present illness. PHYSICAL EXAMINATION: GENERAL: The patient is awake, oriented to self, in no acute distress. VITAL SIGNS: Blood pressure is 120/62, heart rate 92, respiratory rate 18, and temperature is 97.6. HEAD AND NECK: Pupils reactive to light. Extraocular muscles cannot be tested. Oral cavity, no lesion. NECK: Supple. CHEST: Good air entry. LUNGS: Clear to auscultation. CARDIOVASCULAR: Regular rate and rhythm. No murmur or gallop. ABDOMEN: Soft, positive bowel sounds, not tender. EXTREMITIES: Lower extremities, no edema. CENTRAL NERVOUS SYSTEM: Grossly nonfocal. LABORATORY DATA: No new labs. IMPRESSION: An 82-year-old with difficulty swallowing and decreased oral intake. ASSESSMENT AND PLAN: Difficulty swallowing. I agree with changing the food consistencies what the speech therapist recommended. We will decrease oral intake. The patient already on Remeron, so we will continue with it, might consider increasing it. We will watch him for a day or two if things are improving, we will continue. If not, consider endoscopy. Other medical problems are diabetes, coronary artery disease, dementia, depression, etc., as per Dr. Mary and Dr. Hernandez. Thank you Dr. Hernandez and Dr. Mary for allowing us to participate in the care of the patient. If you have any further questions, please let me know. JOB# [id number]
--- NOTE | 2017-12-29 08:40 | Progress Notes ---
DATE: 12/26/2017 SUBJECTIVE: Chart reviewed and the patient interviewed. Also, discussed the patient's condition with the staff and reviewed records and labs. The patient is still severely irritable and severely agitated. She also is still suspicious and paranoid. Also, during interview, the patient is in angry and irritable mood. She also still resisting care and she is at times refused to take medications and she did refuse to take her medicine last night, but according to staff, she did take it this morning. She is still resisting help from the staff with her ADLs. Otherwise, the patient is patient is slightly less agitated today. ASSESSMENT: The patient is still psychotic. TREATMENT PLAN: We will continue monitoring her behavior and her condition closely. Also, we will continue to work on her irritability and her noncompliance with treatment medications and will continue to follow up closely. [facility]# [id number]
[2017-12-29] MEDS: OLANZapine 5 mg Oral Disintegrating Tab PO SCH ×2 (09:34→16:59)
[2017-12-29] MEDS: Multivitamin Tab PO SCH (09:34)
[2017-12-29] MEDS: Potassium Chloride 10 mEq ER Tab PO SCH (09:35)
[2017-12-29] MEDS: Aspirin 81mg Chewable Tab PO SCH (09:36)
--- NOTE | 2017-12-29 10:19 | Progress Notes ---
DATE: 12/27/2017 Chart reviewed and the patient interviewed. Also discussed the patient's condition with the staff and reviewed records and labs. The patient is still easily agitated and especially her agitation increased during the first part of the day. She is on other hand, yelling less, but she is still trying to get off the bed. The patient also is refusing to take Seroquel. When I asked the patient about the reason for the refusal to take Seroquel, she has no specific answer, but she does not want to take the medicine. ASSESSMENT: The patient is still not cooperative and is still psychotic and confused. TREATMENT PLAN: We will continue monitoring her behavior and her condition closely. Also, we will discontinue Seroquel and we will start the patient on Zyprexa Zydis, hopefully to help patient with her noncompliance with medications and we will continue to follow up closely. We will start Zyprexa Zydis 5 mg twice a day. [facility]# [id number]
--- NOTE | 2017-12-29 11:21 | Progress Notes ---
DATE: 12/28/2017 SUBJECTIVE: Chart reviewed and the patient interviewed. Also, discussed the patient's condition with the staff and reviewed records and labs. The patient continued to be confused and she is in irritable mood that she tried to get off bed. She also has unsteady gait. The patient also is still mumbling with words, but difficult to understand. She also has been refusing to take medications in spite of explaining her benefits, side effects and alternatives. ASSESSMENT: The patient is still psychotic and can be danger to self. TREATMENT PLAN: Continue monitoring her behavior closely. Also, I started the patient on Zyprexa Zydis hoping that she can easier to take it and will continue to work on her compliance with her and medications and continue to follow up. JOB# [id number]
--- NOTE | 2017-12-29 17:28 | Internal Medicine Prog Note ---
Internal Medicine Subjective - Subjective Service Date: 12/29/17 Patient is:: awake Per staff patient has:: tolerating meds Internal Medicine Objective - Results Result Diagrams: 12/21/17 19:15 12/21/17 19:15 Recent Labs: Laboratory Last Values WBC 9.1 Th/cmm (4.8-10.8) D 12/21/17 19:15 RBC 4.19 Mil/cmm (3.80-5.20) 12/21/17 19:15 Hgb 11.9 gm/dL (12-16) L 12/21/17 19:15 Hct 36.2 % (41.0-60) L D 12/21/17 19:15 MCV 86.4 fl (81-100) 12/21/17 19:15 MCH 28.4 pg (27.0-31.0) 12/21/17 19:15 MCHC Differential 32.9 pg (28.0-36.0) 12/21/17 19:15 RDW 12.5 % (11.5-20.0) 12/21/17 19:15 Plt Count 321 Th/cmm (150-400) D 12/21/17 19:15 MPV 9.2 fl 12/21/17 19:15 Neutrophils % 75.8 % (40.0-80.0) 12/21/17 19:15 Lymphocytes % 12.9 % (20.0-50.0) L 12/21/17 19:15 Monocytes % 8.9 % (2.0-10.0) 12/21/17 19:15 Eosinophils % 2.2 % (0.0-5.0) 12/21/17 19:15 Basophils % 0.2 % (0.0-2.0) 12/21/17 19:15 Sodium 140 mEq/L (136-145) 12/21/17 19:15 Potassium 3.4 mEq/L (3.5-5.1) L 12/21/17 19:15 Chloride 108 mEq/L (98-107) H 12/21/17 19:15 Carbon Dioxide 26.1 mEq/L (21.0-31.0) 12/21/17 19:15 Anion Gap 9.3 (7.0-16.0) 12/21/17 19:15 BUN 17 mg/dL (7-25) 12/21/17 19:15 Creatinine 1.9 mg/dL (0.6-1.2) H 12/21/17 19:15 Est GFR ( Amer) TNP 12/21/17 19:15 Est GFR (Non-Af Amer) TNP 12/21/17 19:15 BUN/Creatinine Ratio 8.9 12/21/17 19:15 Glucose 100 mg/dL (70-105) 12/21/17 19:15 Hemoglobin A1c % 5.5 % (4.0-6.0) 12/21/17 19:15 Calcium 9.1 mg/dL (8.6-10.3) 12/21/17 19:15 Total Bilirubin 0.6 mg/dL (0.3-1.0) 12/21/17 19:15 AST 12 U/L (13-39) L 12/21/17 19:15 ALT 7 U/L (7-52) 12/21/17 19:15 Alkaline Phosphatase 47 U/L (34-104) 12/21/17 19:15 Total Protein 6.6 gm/dL (6.0-8.3) 12/21/17 19:15 Albumin 3.5 gm/dL (3.7-5.3) L 12/21/17 19:15 Globulin 3.1 gm/dL 12/21/17 19:15 Albumin/Globulin Ratio 1.1 (1.0-1.8) 12/21/17 19:15 Triglycerides 71 mg/dL (<150) 12/21/17 19:15 Cholesterol 119 mg/dL (<200) 12/21/17 19:15 LDL Cholesterol Direct 68 mg/dL (75-193) L 12/21/17 19:15 HDL Cholesterol 40 mg/dL (23-92) 12/21/17 19:15 TSH 1.65 uIU/ml (0.34-5.60) 12/21/17 19:15 RPR NONREACTIVE (NONREACTIVE) 12/21/17 19:15 - Physical Exam Vitals and I&O: Vital Signs Temp 97.9 F 12/29/17 05:31 Pulse 72 12/29/17 09:39 Resp 19 12/29/17 05:31 BP 97/60 12/29/17 09:40 Pulse Ox 97 12/29/17 05:31 Intake & Output 12/28/17 12/29/17 12/29/17 18:59 06:59 18:59 Intake Total 800 120 Balance 800 120 Intake: Oral 800 120 Other: # Voids 3 # Bowel Movements 0 Stool Characteristics Soft Liquid Active Medications: Current Medications Acetaminophen (Tylenol) 650 mg PO Q4HR PRN PRN Reason: Pain or Fever >101 Stop: 02/20/18 00:26 Amlodipine Besylate (Norvasc) 5 mg PO DAILY KRISTIE Stop: 02/20/18 08:59 Last Admin: 12/29/17 09:39 Dose: Not Given Aspirin (Aspirin Chewable) 81 mg PO DAILY KRISTIE Stop: 02/20/18 08:59 Last Admin: 12/29/17 09:36 Dose: 81 mg Bisacodyl (Dulcolax 10 Mg Supp) 10 mg RC DAILY PRN PRN Reason: Constipation Stop: 02/20/18 00:26 Carbidopa/Levodopa (Sinemet 25mg-100 Mg) 1 tab PO 2100 [facility] Stop: 02/20/18 20:59 Last Admin: 12/28/17 21:00 Dose: 1 tab Carbidopa/Levodopa (Sinemet 25mg-100 Mg) 1 tab PO QID KRISTIE Stop: 02/20/18 08:59 Last Admin: 12/29/17 16:59 Dose: 1 tab Docusate Sodium (Colace) 100 mg PO DAILY [facility] Stop: 02/20/18 08:59 Last Admin: 12/29/17 09:39 Dose: Not Given Folic Acid (Folate) 1 mg PO DAILY [facility] Stop: 02/20/18 08:59 Last Admin: 12/29/17 09:35 Dose: 1 mg Furosemide (Lasix) 20 mg PO DAILY KRISTIE Stop: 02/20/18 08:59 Last Admin: 12/29/17 09:40 Dose: Not Given Loperamide HCl (Imodium) 2 mg PO Q12HR PRN PRN Reason: Diarrhea Stop: 02/25/18 20:59 Last Admin: 12/28/17 06:40 Dose: 2 mg Lorazepam (Ativan) 0.5 mg PO Q6HR PRN; Protocol PRN Reason: Agitation Stop: 02/20/18 04:54 Magnesium Hydroxide (Milk Of Magnesia) 30 ml PO DAILY PRN PRN Reason: Constipation Stop: 02/20/18 00:26 Mirtazapine (Remeron) 7.5 mg PO HS KRISTIE PRN Reason: Protocol Stop: 02/20/18 20:59 Last Admin: 12/28/17 21:00 Dose: 7.5 mg Multivitamins/Vitamin C (Theragran) 1 tab PO DAILY KRISTIE Stop: 02/20/18 08:59 Last Admin: 12/29/17 09:34 Dose: 1 tab Olanzapine (Zyprexa Zydis) 5 mg PO BID KRISTIE PRN Reason: Protocol Stop: 02/25/18 08:59 Last Admin: 12/29/17 16:59 Dose: 5 mg Pantoprazole Sodium (Protonix) 40 mg PO QDAC KRISTIE Stop: 02/20/18 08:59 Last Admin: 12/29/17 06:41 Dose: 40 mg Potassium Chloride (Klor-Con) 10 meq PO DAILY KRISTIE Stop: 02/20/18 08:59 Last Admin: 12/29/17 09:35 Dose: 10 meq Simvastatin (Zocor) 20 mg PO QPM KRISTIE PRN Reason: Protocol Stop: 02/20/18 16:59 Last Admin: 12/29/17 16:59 Dose: 20 mg Sodium Phosphate (Fleet Enema) 135 ml RC Q48HR PRN PRN Reason: Constipation Stop: 02/20/18 00:26 Zolpidem Tartrate (Ambien) 5 mg PO HS PRN PRN Reason: Insomnia Stop: 02/20/18 04:56 General: alert HEENT: NC/AT, PERRLA Lungs: CTAB Cardiovascular: RRR, Normal S1, Normal S2 Abdomen: soft, non-tender, non-distended, positive bowel sound Neurological: alert - Procedures Procedures: Procedures Procedure Code Date GROUP PSYCHOTHERAPY 90644 10/01/15 GROUP PSYCHOTHERAPY [id number] 10/01/15 GROUP PSYCHOTHERAPY 27725 09/02/03 [facility] PSYCHOTHERAP NEC 94.39 11/27/05 INSERT PACE. DUAL FRANCIS IN CHEST SUBCU/FASCIA, OPEN [id number] 10/09/15 INSERTION OF PACEMAKER LEAD INTO RIGHT ATRIUM, OPEN APPROACH [id number] 10/09/15 INSRT HEART PM ATRIAL & VENT 48144 10/09/15 OTHER GROUP THERAPY 94.44 05/06/08 RECREATIONAL THERAPY 93.81 01/23/08 Internal Medicine Assmt/Plan - Assessment Assessment: DM STAGE IV RENAL DISEASE DEMENTIA DEPRESSION AGGRESSIVENESS PARKINSON'S - Plan Plan: monitor glucose fall precautions monitor i+o continue current orders Nutritional Asmnt/Malnutr-PDOC - Dietary Evaluation Malnutrition Findings (Please click <Entered> for more info): Nutritional Asmnt/Malnutrition Start: 12/26/17 18: 33 Text: Status: Complete Freq: Document 12/26/17 18:33 LCDONNAG (Rec: 12/26/17 18:38 [email or web address]) Nutritional Asmnt/Malnutrition Patient General Information Nutritional Screening Moderate Risk Diagnosis psychosis Pertinent Medical Hx/Surgical Hx DM, CAD, stage 4 renal disease , dementia, parkinson's disease, depression Subjective Information Per records, PO intake 75-100% Current Diet Order/ Nutrition Support CCHO-60gm Pertinent Medications colace, folate, lasix, remeron , Theragran,protonix, kcl, seroquel Pertinent Labs 2 K 3.4, Cl 108, Cr 1.9, Glucose 100, A1c 5.5 Nutritional Hx/Data Height 5 ft 2 in Height (Calculated Centimeters) 157.5 Current Weight (lbs) 150 lb Weight (Calculated Kilograms) 68.0 Weight (Calculated Grams) 08574.9 [place] Body Weight 110 Body Mass Index (BMI) 27.4 Weight Status Overweight GI Symptoms GI Symptoms None Last BM 2/2 Difficult in: None Skin Integrity/Comment: intact Current %PO Good (75-100%) Estimated Nutritional Goals BEE in Kcals: Adj wt of IBW Calories/Kcals/Kg 25-30 Kcals Calculated 4326-9178 Protein: Adj wt of IBW Protein g/k Protein Calculated 55 Fluid: ml 1735-2101 Nutritional Problem No current Nutrition Prob Problem N/A Malnutrition Alert Protein-Calorie Malnutrition N/A Is there a minimum of two criteria No selected? Query Text:Check all the applicable criteria. A minimum of two criteria are recommended for diagnosis of either severe or non-severe malnutrition. Intervention/Recommendation Comments 1. Recommend regular diet d/t blood glucose and A1c WNL 2. Monitor PO intake, wt, labs and skin integrity 3. F/U as low risk in 7 days, 01/02 Expected Outcomes/Goals Expected Outcomes/Goals 1. PO intake to meet at least 75% of nutritional needs. 2. Wt stability, skin to remain intact, labs to approach WNL.
--- NOTE | 2017-12-29 21:42 | Progress Notes ---
DATE: 12/29/2017 SUBJECTIVE: Chart reviewed and the patient interviewed. Also discussed the patient's condition with the staff and reviewed records and labs. The patient still have episodes of irritability and anger. She also still gets agitated easily. The patient also is still resisting care and she is still mumbling and talking to herself. She also tries to get off bed in spite of her anesthetic. The patient also is still selectively refusing her medications, but she refused to take medications at times. ASSESSMENT: The patient is still psychotic and agitated. TREATMENT PLAN: The patient started on Zyprexa Zydis yesterday and continue to work with the patient in regard to her compliance with her medications. At the same time, we will continue to monitor her behavior and continue to follow up closely. JOB# [id number]
[2017-12-30] MEDS: Pantoprazole 40 mg EC Tab PO SCH ×2 (06:47→06:53)
[2017-12-30] MEDS: Aspirin 81mg Chewable Tab PO SCH ×2 (09:46→10:39)
[2017-12-30] MEDS: Potassium Chloride 10 mEq ER Tab PO SCH ×2 (09:46→10:39)
[2017-12-30] MEDS: OLANZapine 5 mg Oral Disintegrating Tab PO SCH ×3 (09:46→16:47)
[2017-12-30] MEDS: Multivitamin Tab PO SCH ×2 (09:46→10:39)
--- NOTE | 2017-12-30 21:05 | Progress Notes ---
DATE: 12/30/2017 SUBJECTIVE: The patient in the hospital has agitation, aggressive behaviors coming in from [place], swinging at other residents, angry, irritable, suspicious, and paranoid. History of Parkinson's disease, dementia. On [id number], the patient essentially refusing interview. Staff noting she has been somewhat more cooperative. Dr. Hernandez seeing the patient over the past few days, noting she remains with episodes of irritability, anger, still gets agitated, resistive to care, mumbling to self, selectively refusing medications, but staff noting she has been taking medications today. ASSESSMENT: The patient remains agitated, irritable, still unruly at times, but seems to be calmer. PLAN: We will continue to monitor. Medications were reviewed. Dr. Irizarry on board in regards to Gastroenterology. We will monitor and follow. JOB# [id number]
[2017-12-31] MEDS: Pantoprazole 40 mg EC Tab PO SCH (06:42)
--- NOTE | 2017-12-31 08:09 | Progress Notes ---
DATE: 12/31/2017 SUBJECTIVE: The patient in the hospital, agitation, aggressive behaviors, coming in from [place], history of dementia. On [id number], unfortunately the patient remains to refuse interview, not talking to me today. I tried to engage with her, but she does not want to engage with me; still with anger, aggressive episodes; staff noting that she is somewhat cooperative, but remains reclusive, depressed, and isolative. MEDICATIONS: Reviewed. ASSESSMENT: The patient remains irritable, refusing interview this morning, depressed and withdrawn. PLAN: We will continue to monitor. The patient has been med compliant. We will continue to monitor and followup. JOB# [id number]
[2017-12-31] MEDS: Multivitamin Tab PO SCH (09:50)
[2017-12-31] MEDS: OLANZapine 5 mg Oral Disintegrating Tab PO SCH ×2 (09:55→18:00)
[2017-12-31] MEDS: Aspirin 81mg Chewable Tab PO SCH (09:55)
[2017-12-31] MEDS: Potassium Chloride 10 mEq ER Tab PO SCH (09:55)
--- NOTE | 2017-12-31 10:27 | General Progress Note ---
Subjective - Review of Systems Events since last encounter: depressed withdrawn irritable Objective - Results Result Diagrams: 12/21/17 19:15 12/21/17 19:15 Recent Labs: Laboratory Last Values WBC 9.1 Th/cmm (4.8-10.8) D 12/21/17 19:15 RBC 4.19 Mil/cmm (3.80-5.20) 12/21/17 19:15 Hgb 11.9 gm/dL (12-16) L 12/21/17 19:15 Hct 36.2 % (41.0-60) L D 12/21/17 19:15 MCV 86.4 fl (81-100) 12/21/17 19:15 MCH 28.4 pg (27.0-31.0) 12/21/17 19:15 MCHC Differential 32.9 pg (28.0-36.0) 12/21/17 19:15 RDW 12.5 % (11.5-20.0) 12/21/17 19:15 Plt Count 321 Th/cmm (150-400) D 12/21/17 19:15 MPV 9.2 fl 12/21/17 19:15 Neutrophils % 75.8 % (40.0-80.0) 12/21/17 19:15 Lymphocytes % 12.9 % (20.0-50.0) L 12/21/17 19:15 Monocytes % 8.9 % (2.0-10.0) 12/21/17 19:15 Eosinophils % 2.2 % (0.0-5.0) 12/21/17 19:15 Basophils % 0.2 % (0.0-2.0) 12/21/17 19:15 Sodium 140 mEq/L (136-145) 12/21/17 19:15 Potassium 3.4 mEq/L (3.5-5.1) L 12/21/17 19:15 Chloride 108 mEq/L (98-107) H 12/21/17 19:15 Carbon Dioxide 26.1 mEq/L (21.0-31.0) 12/21/17 19:15 Anion Gap 9.3 (7.0-16.0) 12/21/17 19:15 BUN 17 mg/dL (7-25) 12/21/17 19:15 Creatinine 1.9 mg/dL (0.6-1.2) H 12/21/17 19:15 Est GFR ( Amer) TNP 12/21/17 19:15 Est GFR (Non-Af Amer) TNP 12/21/17 19:15 BUN/Creatinine Ratio 8.9 12/21/17 19:15 Glucose 100 mg/dL (70-105) 12/21/17 19:15 Hemoglobin A1c % 5.5 % (4.0-6.0) 12/21/17 19:15 Calcium 9.1 mg/dL (8.6-10.3) 12/21/17 19:15 Total Bilirubin 0.6 mg/dL (0.3-1.0) 12/21/17 19:15 AST 12 U/L (13-39) L 12/21/17 19:15 ALT 7 U/L (7-52) 12/21/17 19:15 Alkaline Phosphatase 47 U/L (34-104) 12/21/17 19:15 Total Protein 6.6 gm/dL (6.0-8.3) 12/21/17 19:15 Albumin 3.5 gm/dL (3.7-5.3) L 12/21/17 19:15 Globulin 3.1 gm/dL 12/21/17 19:15 Albumin/Globulin Ratio 1.1 (1.0-1.8) 12/21/17 19:15 Triglycerides 71 mg/dL (<150) 12/21/17 19:15 Cholesterol 119 mg/dL (<200) 12/21/17 19:15 LDL Cholesterol Direct 68 mg/dL (75-193) L 12/21/17 19:15 HDL Cholesterol 40 mg/dL (23-92) 12/21/17 19:15 TSH 1.65 uIU/ml (0.34-5.60) 12/21/17 19:15 RPR NONREACTIVE (NONREACTIVE) 12/21/17 19:15 - Physical Exam Vitals and I&O: Vital Signs Temp 98.7 F 12/31/17 05:27 Pulse 67 12/31/17 09:55 Resp 20 12/31/17 05:27 BP 99/59 12/31/17 09:59 Pulse Ox 97 12/31/17 05:27 Intake & Output 12/30/17 12/31/17 12/31/17 18:59 06:59 18:59 Intake Total 500 120 Balance 500 120 Intake: Oral 500 120 Other: # Voids 3 3 # Bowel Movements 4 0 Stool Characteristics Soft Soft Liquid Active Medications: Current Medications Acetaminophen (Tylenol) 650 mg PO Q4HR PRN PRN Reason: Pain or Fever >101 Stop: 02/20/18 00:26 Amlodipine Besylate (Norvasc) 5 mg PO DAILY KRISTIE Stop: 02/20/18 08:59 Last Admin: 12/31/17 09:55 Dose: Not Given Aspirin (Aspirin Chewable) 81 mg PO DAILY KRISTIE Stop: 02/20/18 08:59 Last Admin: 12/31/17 09:55 Dose: 81 mg Bisacodyl (Dulcolax 10 Mg Supp) 10 mg RC DAILY PRN PRN Reason: Constipation Stop: 02/20/18 00:26 Carbidopa/Levodopa (Sinemet 25mg-100 Mg) 1 tab PO 2100 KRISTIE Stop: 02/20/18 20:59 Last Admin: 12/30/17 21:57 Dose: 1 tab Carbidopa/Levodopa (Sinemet 25mg-100 Mg) 1 tab PO QID KRISTIE Stop: 02/20/18 08:59 Last Admin: 12/31/17 09:59 Dose: 1 tab Docusate Sodium (Colace) 100 mg PO DAILY KRISTIE Stop: 02/20/18 08:59 Last Admin: 12/31/17 09:59 Dose: 100 mg Folic Acid (Folate) 1 mg PO DAILY KRISTIE Stop: 02/20/18 08:59 Last Admin: 12/31/17 09:59 Dose: 1 mg Furosemide (Lasix) 20 mg PO DAILY KRISTIE Stop: 02/20/18 08:59 Last Admin: 12/31/17 09:59 Dose: Not Given Loperamide HCl (Imodium) 2 mg PO Q12HR PRN PRN Reason: Diarrhea Stop: 02/25/18 20:59 Last Admin: 12/28/17 06:40 Dose: 2 mg Lorazepam (Ativan) 0.5 mg PO Q6HR PRN; Protocol PRN Reason: Agitation Stop: 02/20/18 04:54 Magnesium Hydroxide (Milk Of Magnesia) 30 ml PO DAILY PRN PRN Reason: Constipation Stop: 02/20/18 00:26 Mirtazapine (Remeron) 7.5 mg PO HS KRISTIE PRN Reason: Protocol Stop: 02/20/18 20:59 Last Admin: 12/30/17 21:57 Dose: 7.5 mg Multivitamins/Vitamin C (Theragran) 1 tab PO DAILY KRISTIE Stop: 02/20/18 08:59 Last Admin: 12/31/17 09:50 Dose: 1 tab Olanzapine (Zyprexa Zydis) 5 mg PO BID KRISTIE PRN Reason: Protocol Stop: 02/25/18 08:59 Last Admin: 12/31/17 09:55 Dose: 5 mg Pantoprazole Sodium (Protonix) 40 mg PO QDAC KRISTIE Stop: 02/20/18 08:59 Last Admin: 12/31/17 06:42 Dose: 40 mg Potassium Chloride (Klor-Con) 10 meq PO DAILY KRISTIE Stop: 02/20/18 08:59 Last Admin: 12/31/17 09:55 Dose: 10 meq Simvastatin (Zocor) 20 mg PO QPM KRISTIE PRN Reason: Protocol Stop: 02/20/18 16:59 Last Admin: 12/30/17 16:47 Dose: 20 mg Sodium Phosphate (Fleet Enema) 135 ml RC Q48HR PRN PRN Reason: Constipation Stop: 02/20/18 00:26 Zolpidem Tartrate (Ambien) 5 mg PO HS PRN PRN Reason: Insomnia Stop: 02/20/18 04:56 - Procedures Procedures: Procedures Procedure Code Date GROUP PSYCHOTHERAPY 88923 10/01/15 GROUP PSYCHOTHERAPY [id number] 10/01/15 GROUP PSYCHOTHERAPY 96292 09/02/03 [facility] PSYCHOTHERAP NEC 94.39 11/27/05 INSERT PACE. DUAL FRANCIS IN CHEST SUBCU/FASCIA, OPEN [id number] 10/09/15 INSERTION OF PACEMAKER LEAD INTO RIGHT ATRIUM, OPEN APPROACH [id number] 10/09/15 INSRT HEART PM ATRIAL & VENT 33634 10/09/15 OTHER GROUP THERAPY 94.44 05/06/08 RECREATIONAL THERAPY 93.81 01/23/08 Nutritional Asmnt/Malnutr-PDOC - Dietary Evaluation Malnutrition Findings (Please click <Entered> for more info): Nutritional Asmnt/Malnutrition Start: 12/26/17 18: 33 Text: Status: Complete Freq: Document 12/26/17 18:33 LCHENG (Rec: 12/26/17 18:38 [facility] [email or web address]) Nutritional Asmnt/Malnutrition Patient General Information Nutritional Screening Moderate Risk Diagnosis psychosis Pertinent Medical Hx/Surgical Hx DM, CAD, stage 4 renal disease , dementia, parkinson's disease, depression Subjective Information Per records, PO intake 75-100% Current Diet Order/ Nutrition Support CCHO-60gm Pertinent Medications colace, folate, lasix, remeron , Theragran,protonix, kcl, seroquel Pertinent Labs 12/21 K 3.4, Cl 108, Cr 1.9, Glucose 100, A1c 5.5 Nutritional Hx/Data Height 1.57 m Height (Calculated Centimeters) 157.5 Current Weight (lbs) 68.039 kg Weight (Calculated Kilograms) 68.0 Weight (Calculated Grams) 04649.9 [place] Body Weight 110 Body Mass Index (BMI) 27.4 Weight Status Overweight GI Symptoms GI Symptoms None Last BM 2/2 Difficult in: None Skin Integrity/Comment: intact Current %PO Good (75-100%) Estimated Nutritional Goals BEE in Kcals: Adj wt of IBW Calories/Kcals/Kg 25-30 Kcals Calculated 2357-7492 Protein: Adj wt of IBW Protein g/k Protein Calculated 55 Fluid: ml 0462-5564 Nutritional Problem No current Nutrition Prob Problem N/A Malnutrition Alert Protein-Calorie Malnutrition N/A Is there a minimum of two criteria No selected? Query Text:Check all the applicable criteria. A minimum of two criteria are recommended for diagnosis of either severe or non-severe malnutrition. Intervention/Recommendation Comments 1. Recommend regular diet d/t blood glucose and A1c WNL 2. Monitor PO intake, wt, labs and skin integrity 3. F/U as low risk in 7 days, 01/02 Expected Outcomes/Goals Expected Outcomes/Goals 1. PO intake to meet at least 75% of nutritional needs. 2. Wt stability, skin to remain intact, labs to approach WNL.
[2018-01-01] MEDS: Pantoprazole 40 mg EC Tab PO SCH (06:47)
[2018-01-01] MEDS: Aspirin 81mg Chewable Tab PO SCH (08:18)
[2018-01-01] MEDS: OLANZapine 5 mg Oral Disintegrating Tab PO SCH (08:19)
[2018-01-01] MEDS: Multivitamin Tab PO SCH (08:19)
[2018-01-01] MEDS: Potassium Chloride 10 mEq ER Tab PO SCH (08:19)
--- NOTE | 2018-01-01 16:15 | General Progress Note ---
Subjective - Review of Systems Events since last encounter: irritable in no distress Objective - Results Result Diagrams: 12/21/17 19:15 12/21/17 19:15 Recent Labs: Laboratory Last Values WBC 9.1 Th/cmm (4.8-10.8) D 12/21/17 19:15 RBC 4.19 Mil/cmm (3.80-5.20) 12/21/17 19:15 Hgb 11.9 gm/dL (12-16) L 12/21/17 19:15 Hct 36.2 % (41.0-60) L D 12/21/17 19:15 MCV 86.4 fl (81-100) 12/21/17 19:15 MCH 28.4 pg (27.0-31.0) 12/21/17 19:15 MCHC Differential 32.9 pg (28.0-36.0) 12/21/17 19:15 RDW 12.5 % (11.5-20.0) 12/21/17 19:15 Plt Count 321 Th/cmm (150-400) D 12/21/17 19:15 MPV 9.2 fl 12/21/17 19:15 Neutrophils % 75.8 % (40.0-80.0) 12/21/17 19:15 Lymphocytes % 12.9 % (20.0-50.0) L 12/21/17 19:15 Monocytes % 8.9 % (2.0-10.0) 12/21/17 19:15 Eosinophils % 2.2 % (0.0-5.0) 12/21/17 19:15 Basophils % 0.2 % (0.0-2.0) 12/21/17 19:15 Sodium 140 mEq/L (136-145) 12/21/17 19:15 Potassium 3.4 mEq/L (3.5-5.1) L 12/21/17 19:15 Chloride 108 mEq/L (98-107) H 12/21/17 19:15 Carbon Dioxide 26.1 mEq/L (21.0-31.0) 12/21/17 19:15 Anion Gap 9.3 (7.0-16.0) 12/21/17 19:15 BUN 17 mg/dL (7-25) 12/21/17 19:15 Creatinine 1.9 mg/dL (0.6-1.2) H 12/21/17 19:15 Est GFR ( Amer) TNP 12/21/17 19:15 Est GFR (Non-Af Amer) TNP 12/21/17 19:15 BUN/Creatinine Ratio 8.9 12/21/17 19:15 Glucose 100 mg/dL (70-105) 12/21/17 19:15 Hemoglobin A1c % 5.5 % (4.0-6.0) 12/21/17 19:15 Calcium 9.1 mg/dL (8.6-10.3) 12/21/17 19:15 Total Bilirubin 0.6 mg/dL (0.3-1.0) 12/21/17 19:15 AST 12 U/L (13-39) L 12/21/17 19:15 ALT 7 U/L (7-52) 12/21/17 19:15 Alkaline Phosphatase 47 U/L (34-104) 12/21/17 19:15 Total Protein 6.6 gm/dL (6.0-8.3) 12/21/17 19:15 Albumin 3.5 gm/dL (3.7-5.3) L 12/21/17 19:15 Globulin 3.1 gm/dL 12/21/17 19:15 Albumin/Globulin Ratio 1.1 (1.0-1.8) 12/21/17 19:15 Triglycerides 71 mg/dL (<150) 12/21/17 19:15 Cholesterol 119 mg/dL (<200) 12/21/17 19:15 LDL Cholesterol Direct 68 mg/dL (75-193) L 12/21/17 19:15 HDL Cholesterol 40 mg/dL (23-92) 12/21/17 19:15 TSH 1.65 uIU/ml (0.34-5.60) 12/21/17 19:15 RPR NONREACTIVE (NONREACTIVE) 12/21/17 19:15 - Physical Exam Vitals and I&O: Vital Signs Temp 98.5 F 01/01/18 06:46 Pulse 89 01/01/18 08:18 Resp 20 01/01/18 06:46 BP 82/48 01/01/18 08:19 Pulse Ox 94 01/01/18 06:46 Intake & Output 12/31/17 01/01/18 01/01/18 18:59 06:59 18:59 Intake Total 600 Balance 600 Intake: Oral 600 Other: # Voids 0 Stool Characteristics Soft Liquid Active Medications: Current Medications Acetaminophen (Tylenol) 650 mg PO Q4HR PRN PRN Reason: Pain or Fever >101 Stop: 02/20/18 00:26 Amlodipine Besylate (Norvasc) 5 mg PO DAILY KRISTIE Stop: 02/20/18 08:59 Last Admin: 01/01/18 08:18 Dose: Not Given Aspirin (Aspirin Chewable) 81 mg PO DAILY KRISTIE Stop: 02/20/18 08:59 Last Admin: 01/01/18 08:18 Dose: 81 mg Bisacodyl (Dulcolax 10 Mg Supp) 10 mg RC DAILY PRN PRN Reason: Constipation Stop: 02/20/18 00:26 Carbidopa/Levodopa (Sinemet 25mg-100 Mg) 1 tab PO 2100 KRISTIE Stop: 02/20/18 20:59 Last Admin: 12/31/17 21:33 Dose: Not Given Carbidopa/Levodopa (Sinemet 25mg-100 Mg) 1 tab PO QID KRISTIE Stop: 02/20/18 08:59 Last Admin: 01/01/18 15:09 Dose: Not Given Docusate Sodium (Colace) 100 mg PO DAILY [facility] Stop: 02/20/18 08:59 Last Admin: 01/01/18 08:18 Dose: 100 mg Folic Acid (Folate) 1 mg PO DAILY KRISTIE Stop: 02/20/18 08:59 Last Admin: 01/01/18 08:19 Dose: 1 mg Furosemide (Lasix) 20 mg PO DAILY KRISTIE Stop: 02/20/18 08:59 Last Admin: 01/01/18 08:19 Dose: Not Given Loperamide HCl (Imodium) 2 mg PO Q12HR PRN PRN Reason: Diarrhea Stop: 02/25/18 20:59 Last Admin: 12/28/17 06:40 Dose: 2 mg Lorazepam (Ativan) 0.5 mg PO Q6HR PRN; Protocol PRN Reason: Agitation Stop: 02/20/18 04:54 Magnesium Hydroxide (Milk Of Magnesia) 30 ml PO DAILY PRN PRN Reason: Constipation Stop: 02/20/18 00:26 Mirtazapine (Remeron) 7.5 mg PO HS KRISTIE PRN Reason: Protocol Stop: 02/20/18 20:59 Last Admin: 12/31/17 21:33 Dose: Not Given Multivitamins/Vitamin C (Theragran) 1 tab PO DAILY KRISTIE Stop: 02/20/18 08:59 Last Admin: 01/01/18 08:19 Dose: 1 tab Olanzapine (Zyprexa Zydis) 5 mg PO BID KRISTIE PRN Reason: Protocol Stop: 02/25/18 08:59 Last Admin: 01/01/18 08:19 Dose: 5 mg Pantoprazole Sodium (Protonix) 40 mg PO QDAC KRISTIE Stop: 02/20/18 08:59 Last Admin: 01/01/18 06:47 Dose: Not Given Potassium Chloride (Klor-Con) 10 meq PO DAILY KRISTIE Stop: 02/20/18 08:59 Last Admin: 01/01/18 08:19 Dose: 10 meq Simvastatin (Zocor) 20 mg PO QPM KRISTIE PRN Reason: Protocol Stop: 02/20/18 16:59 Last Admin: 12/31/17 18:00 Dose: 20 mg Sodium Phosphate (Fleet Enema) 135 ml RC Q48HR PRN PRN Reason: Constipation Stop: 02/20/18 00:26 Zolpidem Tartrate (Ambien) 5 mg PO HS PRN PRN Reason: Insomnia Stop: 02/20/18 04:56 - Procedures Procedures: Procedures Procedure Code Date GROUP PSYCHOTHERAPY 11283 10/01/15 GROUP PSYCHOTHERAPY [id number] 10/01/15 GROUP PSYCHOTHERAPY 70343 09/02/03 INDIVID PSYCHOTHERAP NEC 94.39 11/27/05 INSERT PACE. DUAL FRANCIS IN CHEST SUBCU/FASCIA, OPEN [id number] 10/09/15 INSERTION OF PACEMAKER LEAD INTO RIGHT ATRIUM, OPEN APPROACH [id number] 10/09/15 INSRT HEART PM ATRIAL & VENT 53646 10/09/15 OTHER GROUP THERAPY 94.44 05/06/08 RECREATIONAL THERAPY 93.81 08 Nutritional Asmnt/Malnutr-PDOC - Dietary Evaluation Malnutrition Findings (Please click <Entered> for more info): Nutritional Asmnt/Malnutrition Start: 12/26/17 18: 33 Text: Status: Complete Freq: Document 12/26/17 18:33 LCHENG (Rec: 12/26/17 18:38 PREETHIG [email or web address]) Nutritional Asmnt/Malnutrition Patient General Information Nutritional Screening Moderate Risk Diagnosis psychosis Pertinent Medical Hx/Surgical Hx DM, CAD, stage 4 renal disease , dementia, parkinson's disease, depression Subjective Information Per records, PO intake 75-100% Current Diet Order/ Nutrition Support CCHO-60gm Pertinent Medications colace, folate, lasix, remeron , Theragran,protonix, kcl, seroquel Pertinent Labs 12/21 K 3.4, Cl 108, Cr 1.9, Glucose 100, A1c 5.5 Nutritional Hx/Data Height 1.57 m Height (Calculated Centimeters) 157.5 Current Weight (lbs) 68.039 kg Weight (Calculated Kilograms) 68.0 Weight (Calculated Grams) 61352.9 [place] Body Weight 110 Body Mass Index (BMI) 27.4 Weight Status Overweight GI Symptoms GI Symptoms None Last BM 2/2 Difficult in: None Skin Integrity/Comment: intact Current %PO Good (75-100%) Estimated Nutritional Goals BEE in Kcals: Adj wt of IBW Calories/Kcals/Kg 25-30 Kcals Calculated 0624-9617 Protein: Adj wt of IBW Protein g/k Protein Calculated 55 Fluid: ml [id number] Nutritional Problem No current Nutrition Prob Problem N/A Malnutrition Alert Protein-Calorie Malnutrition N/A Is there a minimum of two criteria No selected? Query Text:Check all the applicable criteria. A minimum of two criteria are recommended for diagnosis of either severe or non-severe malnutrition. Intervention/Recommendation Comments 1. Recommend regular diet d/t blood glucose and A1c WNL 2. Monitor PO intake, wt, labs and skin integrity 3. F/U as low risk in 7 days, 01/02 Expected Outcomes/Goals Expected Outcomes/Goals 1. PO intake to meet at least 75% of nutritional needs. 2. Wt stability, skin to remain intact, labs to approach WNL.
--- NOTE | 2018-01-02 08:05 | Progress Notes ---
DATE: 01/01/2018 The patient is currently in the hospital, agitation and aggressive behaviors, history of dementia. On [id number], the patient is confused, disoriented, mumbles at times, not really able to converse in conversations, remains somewhat impulsive, unpredictable, but seems calmer, less agitated, less unruly, still somewhat impulsive and unpredictable. Medications reviewed. No overt side effects. ASSESSMENT: The patient remains symptomatic. Safety concerns ongoing, but some improvement noted. We will monitor and follow up. [facility]# [id number]
--- NOTE | 2018-01-06 16:19 | Discharge Summary ---
DATE OF DISCHARGE: 01/01/2018 THE PATIENT'S AGE: 83. SEX: Female. PHYSICIAN: Amparo Hernandez M.D., M.P.H. FINAL DIAGNOSIS/PRIMARY DIAGNOSIS: Unspecified psychosis. SECONDARY DIAGNOSIS: Dementia, moderate to severe. MEDICAL DIAGNOSIS: Parkinson disease, agitation. REASON FOR HOSPITALIZATION: The patient was admitted to the hospital because of increased agitation in [facility] and the patient was aggressive and irritable and she was not able to follow staff directions. HOSPITAL COURSE: The patient continued to be agitated and in irritable mood. The patient also was easily agitated. She also was at times refusing to take any medications. She was also in irritable mood and angry. The patient also was guarded. She also seems to be depressed at times. Gradually, the patient's affect was brighter and the patient was less irritable and less agitated and she was discharged back to [facility]. Physical examination of the patient basically was normal. GI consult was done by Dr. Irizarry. The patient had no major medical issues while in the hospital. AFTER DISCHARGE PLANS: The patient discharged from the hospital with plans for outpatient treatment and follow up in a skilled nursing. JOB# [id number]
== END 2018-01-01 19:00 | disposition home or self-care (01) | DRG 885 ==
LOC: ER 18:42 → GERO 22:20
PROVIDERS: ADMIT Psychiatry & Neurology Psychiatry; ATTEND Psychiatry & Neurology Psychiatry
DX: F29 Unspecified psychosis not due to a substance or known physiological condition (principal); F02.81 Dementia in other diseases classified elsewhere, unspecified severity, with behavioral disturbance; N18.4 Chronic kidney disease, stage 4 (severe); E11.22 Type 2 diabetes mellitus with diabetic chronic kidney disease; G20 Parkinson's disease; I25.10 Atherosclerotic heart disease of native coronary artery without angina pectoris; M19.90 Unspecified osteoarthritis, unspecified site; F32.9 Major depressive disorder, single episode, unspecified; Z95.0 Presence of cardiac pacemaker; Z79.84 Long term (current) use of oral hypoglycemic drugs; Z79.82 Long term (current) use of aspirin
CPT/HCPCS: 36415-UA; 80053-TC; 80061-TC; 83036-90; 84443-TC; 85025-TC; 86592-TC; 87230-TC; 93005; X3401; Z7610